=== PATIENT | female | born 1955 | race Caucasian/White ===

== ENCOUNTER 2017-01-02 22:35 | Inpatient (IN) | payer OTHER ==
[~2017-01-02] VITALS: Ht 157.5 cm; Wt 77.7 kg
--- NOTE | 2017-01-03 02:30 | ERA ---
ER Documentation Chief Complaint Date/Time DATE: 01/03/17 TIME: 02:29 Chief Complaint abd wall pain x 5 days HPI The patient is a 61-year-old female, presenting to the ER because of abdominal wall redness and pain for 5 days where she had ventral herniorrhaphy 5 years ago , associated with foul smell discharge and redness. She denies fever, chills, neck pain, chest pain, vomiting, dysuria, diarrhea. She does not smoke nor drink Past medical history: None Past surgical history , ventral herniorrhaphy ROS All systems reviewed and are negative except as per history of present illness. Allergies Allergies: Coded Allergies: No Known Allergies (Unverified Allergy, Mild, 01/03/17) PMhx/Soc History of Surgery: Yes (,HERNIA REPAIR) Anesthesia Reaction: No Hx Neurological Disorder: No Hx Respiratory Disorders: No Hx Cardiac Disorders: No Hx Psychiatric Problems: No Hx Miscellaneous Medical Probl: No Hx Alcohol Use: No Hx Substance Use: No Physical Exam Vitals Vital Signs Date Time Temp Pulse Resp B/P Pulse Ox O2 Delivery O2 Flow Rate FiO2 01/03/17 04:00 98.0 85 20 139/77 97 Room Air 01/03/17 02:53 98.6 97 24 160/97 97 Room Air 01/02/17 22:40 99.2 103 20 162/78 100 Physical Exam Const: No acute distress. Head: Atraumatic. Eyes: Normal Conjunctiva. ENT: Normal External Ears, Nose and Mouth. Neck: Full range of motion. No meningismus. Resp: Clear to auscultation bilaterally. Cardio: Regular rate and rhythm. Abd: Soft, non distended, normal bowel sounds,Abdominal wall with lesion with foul-smelling discharge with surrounding erythema Skin: No petechiae or rashes. Back: No midline or flank tenderness. Ext: No cyanosis, or edema. Neur: Awake and alert. No focal deficit Psych: Normal Mood and Affect. Result Diagram: 01/03/17 0245 01/03/17 0245 Results 24 hrs Laboratory Tests Test 01/03/17 02:45 01/03/17 03:09 White Blood Count 13.210^3/ul Red Blood Count 4.4110^6/ul Hemoglobin 13.3g/dl Hematocrit 40.6% Mean Corpuscular Volume 92.1fl Mean Corpuscular Hemoglobin 30.2pg Mean Corpuscular Hemoglobin Concent 32.8g/dl Red Cell Distribution Width 14.2% Platelet Count 75774^3/UL Mean Platelet Volume 9.9fl Neutrophils % 58.5% Lymphocytes % 32.4% Monocytes % 7.5% Eosinophils % 1.0% Basophils % 0.3% Nucleated Red Blood Cells % 0.0/100WBC Neutrophils # (Manual) 7.810^3/ul Lymphocytes # 4.310^3/ul Monocytes # 1.010^3/ul Eosinophils # 0.110^3/ul Basophils # 0.010^3/ul Nucleated Red Blood Cells # 0.010^3/ul Sodium Level 143mmol/L Potassium Level 3.5mmol/L Chloride Level 106mmol/L Carbon Dioxide Level 24mmol/L Anion Gap 17 Blood Urea Nitrogen 15mg/dl Creatinine 0.63mg/dl Glucose Level 133mg/dl Calcium Level 9.4mg/dl Total Bilirubin 0.6mg/dl Direct Bilirubin 0.00mg/dl Indirect Bilirubin 0.6mg/dl Aspartate Amino Transf (AST/SGOT) 24IU/L Alanine Aminotransferase (ALT/SGPT) 32IU/L Alkaline Phosphatase 145IU/L Total Protein 8.5g/dl Albumin 4.3g/dl Globulin 4.20g/dl Albumin/Globulin Ratio 1.02 Lipase 77U/L Bedside Urine pH (LAB) 5.5 Bedside Urine Protein (LAB) Trace Bedside Urine Glucose (UA) Negative Bedside Urine Ketones (LAB) Negative Bedside Urine Blood Trace-intact Bedside Urine Nitrite (LAB) Negative Bedside Urine Leukocyte Esterase (L Trace Current Medications Medications (Trade) Dose Ordered Sig/Sean Route PRN Reason Start Time Stop Time Status Last Admin Dose Admin Levofloxacin/ Dextrose 150 ml @ 100 mls/hr ONCE ONCE IVPB 01/03/17 04:00 01/03/17 05:29 DC 01/03/17 04:48 Vancomycin HCl (Vancocin) 250 ml @ 125 mls/hr ONCE IVPB 01/03/17 04:00 01/03/17 05:59 Procedures/MDM MEDICAL MAKING DECISION: The patient is a 61-year-old female, presenting with acute abdominal wall cellulitis. She was treated with Levaquin IV and vancomycin IV The differential diagnoses considered include but are not limited to intra- abdominal abscess, cholelithiasis, cholecystitis, cystitis, pancreatitis, hepatitis, gastritis, peptic ulcer disease, gastric ulcer, appendicitis, diverticulitis, cholangitis, choledocholithiasis, partial small bowel obstruction. Departure Diagnosis: Primary Impression: Abdominal wall cellulitis Condition: Stable Comments I discussed the findings with the patient. I discussed the patient the on-call hospitalist Dr. Armendariz who was made aware of the lab, the treatment, the patient condition. The patient is admitted to [facility] The patient's blood pressure was elevated (>120/80) but appears stable without evidence of hypertension emergency or urgency. The patient was counseled about the risks of hypertension and urged to pursue outpatient monitoring and therapy within a week with their primary care physician. CHALINO RODRIGUEZ MD Jan 03, 2017 02:30
[2017-01-03 03:01] LABS: BASOPHILS % 0.3 % (0.0-2.0); EOSINOPHILS # 0.1 10^3/ul (0.0-0.5); HEMATOCRIT 40.6 % (37.0-47.0); HEMOGLOBIN 13.3 g/dl (12.0-16.0); LYMPHOCYTES # 4.3 10^3/ul (0.8-2.9); LYMPHOCYTES % 32.4 % (15.0-51.0); MEAN CORPUSCULAR HEMOGLOBIN 30.2 pg (29.0-33.0); MEAN CORPUSCULAR HGB CONC 32.8 g/dl (32.0-37.0); MEAN CORPUSCULAR VOLUME 92.1 fl (82.0-101.0); MEAN PLATELET VOLUME 9.9 fl (7.4-10.4); MONOCYTES % 7.5 % (0.0-11.0); NEUTROPHILS % 58.5 % (39.0-77.0); PLATELET COUNT 216 10^3/UL (140-415); RED BLOOD COUNT 4.41 10^6/ul (4.20-5.40); RED CELL DISTRIBUTION WIDTH 14.2 % (11.5-14.5); WHITE BLOOD COUNT 13.2 10^3/ul (4.8-10.8)
[2017-01-03 03:02] LABS: URINE BLOOD (Dip) POC Trace-intact (NEGATIVE)
[2017-01-03 03:23] LABS: ALBUMIN 4.3 g/dl (3.3-4.9); ALBUMIN/GLOBULIN RATIO 1.02; BILIRUBIN,INDIRECT 0.6 mg/dl (0-1.1); BILIRUBIN,TOTAL 0.6 mg/dl (0.2-1.3); CALCIUM 9.4 mg/dl (8.4-10.2); CREATININE 0.63 mg/dl (0.44-1.00); POTASSIUM 3.5 mmol/L (3.5-5.1); TOTAL PROTEIN 8.5 g/dl (6.1-8.1)
[2017-01-03] MEDS ORDERED: LEVOFLOXACIN 750MG/D5W (PMX) 150 ML IVPB ONE (04:00)
[2017-01-03] MEDS ORDERED: VANCOMYCIN 1 GM (PMX) 250 ML IVPB SCH (04:00)
[2017-01-03 05:23] VITALS: TEMP 98
[2017-01-03] MEDS ORDERED: NAPR-683 PO (05:58)
[2017-01-03] MEDS ORDERED: morphine 2 MG INJ IV PRN ×2 (08:00→10:30)
[2017-01-03 08:10] VITALS: Ht 157.5 cm; Wt 77.7 kg
[2017-01-03 08:14] VITALS: BP 174/81; RESP 20
[2017-01-03] MEDS ORDERED: hydrALAzine 20 MG INJ IV PRN (10:30)
[2017-01-03] MEDS ORDERED: ONDANSETRON 4 MG INJ IV PRN (10:30)
[2017-01-03] MEDS ORDERED: NACL 0.9% 3 ML SYG IV SCH (10:30)
[2017-01-03] MEDS ORDERED: VANCOMYCIN IV PER PHARMACY XX SCH (10:30)
[2017-01-03] MEDS ORDERED: ACETAMINOPHEN 325 MG TAB PO PRN (10:30)
--- NOTE | 2017-01-03 10:43 | HP ---
Date/Time of Note Date/Time of Note DATE: 01/03/17 TIME: 10:35 Assessment/Plan VTE Prophylaxis VTE Prophylaxis Intervention: SCD's Assessment/Plan Assessment/Plan 1. Sepsis 2/2 and wall cellulitis - IV abx - tf/u culture results including wound cx -pain mgmt 2. HTN: - adjust antihypertensives with adjustment as needed HPI/ROS Admit Date/Time Admit Date/Time Jan 03, 2017 at 04:02 Hx of Present Illness This is a 61 yo female with hx of Ventral hernia repair here at [facility] in 2010 presented with abd pain. Reported redness with draining infection as well as subjective fever. When she presented to ER, WBC was 13,000, but she was afebrile. BP 162/78 with HR of 103. PMH/Family/Social Social History Smoking Status: Never smoker Exam/Review of Systems Vital Signs Vitals Vital Signs Date Time Temp Pulse Resp B/P Pulse Ox O2 Delivery O2 Flow Rate FiO2 01/03/17 08:14 98.3 89 20 174/81 95 01/03/17 05:23 Room Air Intake and Output 01/02/17 01/02/17 01/03/17 15:00 23:00 07:00 Intake Total 150 ml Balance 150 ml Exam Constitutional: other (obese. no distress) Head: atraumatic, normocephalic Eyes: EOMI, PERRL Respiratory: clear to auscultation, normal air movement Cardiovascular: other (tavhycardic) Gastrointestinal: other (there is cellulitis with some pus) Extremities: normal pulses Labs Result Diagram: 01/03/175 01/03/17 0245 Medications Medications Current Medications Ondansetron HCl (Zofran Inj) 4 mg Q6H PRN IV NAUSEA AND/OR VOMITING; Start 01/03 at 10:30 Acetaminophen (Tylenol Tab) 650 mg Q6H PRN PO PAIN LEVEL 1-3 OR FEVER; Start at 10:30 Morphine Sulfate 2 mg 2 mg Q4H PRN IV SEVERE PAIN LEVEL 7-10; Start 01/03/17 at 10:30 Cefepime HCl (Maxipime 1gm/50 ml (Pmx)) 50 ml @ 100 mls/hr Q12 IVPB ; Start 01/03/17 at 10:30 Amlodipine Besylate (Norvasc) 10 mg DAILY PO ; Start 01/03/17 at 10:30 Hydralazine HCl (Apresoline) 10 mg Q4H PRN IV SBP > 160; Start 01/03/17 at 10:30 ALETHEA LINDER MD Jan 03, 2017 10:42
[2017-01-03] MEDS: CEFEPIME 1GM/50 ML (PMX) 50 ML IVPB SCH ×2 (11:27→20:55)
[2017-01-03] MEDS: AMLODIPINE 10 MG TAB PO SCH (11:28)
[2017-01-03] MEDS: VANCOMYCIN 750 MG in SOD CHLORIDE 0.9% 150 ML IVPB SCH ×2 (13:21→22:14)
[2017-01-03 14:31] VITALS: BP 132/66; RESP 20
[2017-01-03 19:41] VITALS: BP 126/69; RESP 18
[2017-01-04] MEDS: AMPICILLIN/SULB 3 GM/NS (PMX) 100 ML IVPB SCH ×4 (00:24→21:48)
[2017-01-04 02:00] VITALS: BP 122/61; RESP 18
[2017-01-04 06:57] LABS: BASOPHILS % 0.4 % (0.0-2.0); EOSINOPHILS # 0.2 10^3/ul (0.0-0.5); EOSINOPHILS % 2.5 % (0.0-7.0); HEMATOCRIT 40.4 % (37.0-47.0); HEMOGLOBIN 13.3 g/dl (12.0-16.0); LYMPHOCYTES # 2.5 10^3/ul (0.8-2.9); LYMPHOCYTES % 34.5 % (15.0-51.0); MEAN CORPUSCULAR HEMOGLOBIN 30.4 pg (29.0-33.0); MEAN CORPUSCULAR HGB CONC 32.9 g/dl (32.0-37.0); MEAN CORPUSCULAR VOLUME 92.2 fl (82.0-101.0); MEAN PLATELET VOLUME 10.3 fl (7.4-10.4); MONOCYTE # 0.5 10^3/ul (0.3-0.9); MONOCYTES % 7.6 % (0.0-11.0); NEUTROPHILS % 54.9 % (39.0-77.0); PLATELET COUNT 229 10^3/UL (140-415); RED BLOOD COUNT 4.38 10^6/ul (4.20-5.40); RED CELL DISTRIBUTION WIDTH 14.1 % (11.5-14.5); WHITE BLOOD COUNT 7.2 10^3/ul (4.8-10.8)
[2017-01-04 07:20] LABS: ALBUMIN 3.8 g/dl (3.3-4.9); ALBUMIN/GLOBULIN RATIO 0.88; BILIRUBIN,INDIRECT 0.4 mg/dl (0-1.1); BILIRUBIN,TOTAL 0.4 mg/dl (0.2-1.3); CALCIUM 9.2 mg/dl (8.4-10.2); CREATININE 0.65 mg/dl (0.44-1.00); MAGNESIUM 2.2 mg/dl (1.7-2.5); PHOSPHORUS 4.3 mg/dl (2.5-4.9); POTASSIUM 4.1 mmol/L (3.5-5.1); TOTAL PROTEIN 8.1 g/dl (6.1-8.1)
[2017-01-04 07:51] VITALS: BP 127/60; RESP 16
[2017-01-04] MEDS: AMLODIPINE 10 MG TAB PO SCH (08:31)
[2017-01-04] MEDS: VANCOMYCIN 750 MG in SOD CHLORIDE 0.9% 150 ML IVPB SCH ×2 (10:45→23:16)
[2017-01-04 13:49] VITALS: BP 105/50; RESP 16
--- NOTE | 2017-01-04 14:47 | PN ---
Date/Time of Note Date/Time of Note DATE: 01/04/17 TIME: 14:45 Assessment/Plan VTE Prophylaxis VTE Prophylaxis Intervention: SCD's Lines/Catheters IV [facility] Type (from [email or web address] Saline Lock Urinary Cath still in place: No Assessment/Plan Chief Complaint/Hosp Course Assessment and plan 1. Sepsis secondary to abdominal wall cellulitis. On IV antibiotics. Awaiting for microbiology final cultures. ID consult to follow. Wound care consult to follow as well. 2. Essential hypertension. On antihypertensives and adjust needed dispo/plan: wait for final cultures. continue on abx. ID consult to follow. continue inhouse monitoring Discussed plan of care with Dr. Joseph Problems: Subjective 24 Hr Interval Summary Free Text/Dictation less abd discomfort reported Exam/Review of Systems Vital Signs Vitals Vital Signs Date Time Temp Pulse Resp B/P Pulse Ox O2 Delivery O2 Flow Rate FiO2 01/04/17 13:49 97.7 73 16 105/50 97 01/03/17 05:23 Room Air Intake and Output 01/03/17 01/03/17 01/04/17 15:00 23:00 07:00 Intake Total 480 ml 1140 ml 1150 ml Balance 480 ml 1140 ml 1150 ml Exam Constitutional: alert, oriented Psych: nl mood/affect Head: normocephalic Eyes: nl conjunctiva Neck: supple Respiratory: clear to auscultation Cardiovascular: regular rate and rhythm Gastrointestinal: soft, tender (on abd wound site ) Musculoskeletal: nl extremities to inspection Neurological: [employer] II-XII intact, nl mental status, nl speech Skin: other (cellulitic wound on abd with some drainage and erythema ) Results Result Diagram: 01/04/17 0540 01/04/17 0540 Results 24 hrs Laboratory Tests Test 01/04/17 05:40 White Blood Count 7.2 # Red Blood Count 4.38 Hemoglobin 13.3 Hematocrit 40.4 Mean Corpuscular Volume 92.2 Mean Corpuscular Hemoglobin 30.4 Mean Corpuscular Hemoglobin Concent 32.9 Red Cell Distribution Width 14.1 Platelet Count 229 Mean Platelet Volume 10.3 Neutrophils % 54.9 Lymphocytes % 34.5 Monocytes % 7.6 Eosinophils % 2.5 Basophils % 0.4 Nucleated Red Blood Cells % 0.0 Neutrophils # (Manual) 3.9 Lymphocytes # 2.5 Monocytes # 0.5 Eosinophils # 0.2 Basophils # 0.0 Nucleated Red Blood Cells # 0.0 Sodium Level 143 Potassium Level 4.1 Chloride Level 106 Carbon Dioxide Level 27 Anion Gap 14 Blood Urea Nitrogen 10 Creatinine 0.65 Glucose Level 111 Calcium Level 9.2 Phosphorus Level 4.3 Magnesium Level 2.2 Total Bilirubin 0.4 Direct Bilirubin 0.00 Indirect Bilirubin 0.4 Aspartate Amino Transf (AST/SGOT) 27 Alanine Aminotransferase (ALT/SGPT) 34 Alkaline Phosphatase 126 H Total Protein 8.1 Albumin 3.8 Globulin 4.30 H Albumin/Globulin Ratio 0.88 Medications Medications Current Medications Ondansetron HCl (Zofran Inj) 4 mg Q6H PRN IV NAUSEA AND/OR VOMITING; Start 01/03 at 10:30 Acetaminophen (Tylenol Tab) 650 mg Q6H PRN PO PAIN LEVEL 1-3 OR FEVER; Start at 10:30 Morphine Sulfate (morphine) 2 mg Q4H PRN IV SEVERE PAIN LEVEL 7-10; Start at 10:30 Amlodipine Besylate (Norvasc) 10 mg DAILY PO Last administered on 01/04/17 08: 31; Admin Dose 10 MG; Start 01/03/17 at 10:30 Hydralazine HCl 10 mg 10 mg Q4H PRN IV SBP > 160; Start 01/03/17 at 10:30 Vancomycin HCl 750 mg/Sodium Chloride 150 ml @ 75 mls/hr Q12H IVPB Last administered on 01/04/17 10:45; Admin Dose 75 MLS/HR; Start 01/03/17 at 11:00 Ampicillin Sodium/ Sulbactam Sodium (Unasyn 3gm/NS (Pmx)) 100 ml @ 100 mls/hr Q8 IVPB Last administered on 01/04/17 14:12; Admin Dose 100 MLS/HR; Start at 22:00; Stop 01/10/17 at 22:00 Miscellaneous Information (*Rx Drug Level Order Reminder*) VANCOMYCIN TROUGH 01/04 AT 2200 ONCE ONCE XX ; Start 01/04/17 at 22:00; Stop 01/04/17 at 22:01 LISA FAULKNER Jan 04, 2017 14:47
--- NOTE | 2017-01-04 19:11 | CONS ---
Date/Time of Note Date/Time of Note DATE: 01/04/17 TIME: 18:57 Assessment/Plan Assessment/Plan Chief Complaint/Hosp Course ID PROGRESS NOTE * NOTE: Dr. Santamaria saw the patient yesterday 01/03 for initial ID consultation, reporting consult note technical dictation failure. CURRENT ABX: =>Vanco IV + Unasyn == started by Dr. Santamaria 01/03 s/p Cefepime DC'd by Dr. Santamaria 01/03 24H INTERVAL SUMMARY * A/A/O - ambulatory in room, no fevers, doing OK * 01/03/17 ABD wound WOUND CULTURE Preliminary Organism 1 GRAM NEGATIVE JANESSA QUANTITY 4+ EXAM GEN: VSS, no fevers, HEENT: Unremarkable NECK: WNL CVS: RRR, CHEST:Equal chest rise bilaterally, without dyspnea ABD: (+)tender w/cellulitic wound with some drainage and erythema ) EXT: Warm, no edema, ambulatory with stead gait ID ASSESSMENT 61 yo F admit with: 1. SIRS w/subjective fevers at home; WBC13,200, BP 162/78 with HR of 103 on admission. 2. ABD wall cellulitis with draining wound * 01/03/17 ABD wound WOUND CULTURE Preliminary Organism 1 GRAM NEGATIVE JANESSA QUANTITY 4+ 3. s/p large ventral hernia repair in 2010 with removal of omentum + flap 3. HTN readings 160-170's range CURRENT ABX =>Vanco IV + Unasyn == started by Dr. Santamaria 01/03 s/p Cefepime DC'd by Dr. Santamaria 01/03 ID RECOMMENDATIONS * Await results of GNR ABD wound drainage => Pending * Anticipate DC home on PO ABX per micro sensitivity results when cleared by primary . Problems: Consultation Date/Type/Reason Admit Date/Time Jan 03, 2017 at 04:02 Initial Consult Date Exam/Review of Systems Vital Signs Vitals Vital Signs Date Time Temp Pulse Resp B/P Pulse Ox O2 Delivery O2 Flow Rate FiO2 01/04/17 13:49 97.7 73 16 105/50 97 01/03/17 05:23 Room Air Intake and Output 01/03/17 01/03/17 01/04/17 15:00 23:00 07:00 Intake Total 480 ml 1140 ml 1150 ml Balance 480 ml 1140 ml 1150 ml Results Result Diagram: 01/04/17 0540 01/04/17 0540 Results 24 hrs Laboratory Tests Test 01/04/17 05:40 White Blood Count 7.2 # Red Blood Count 4.38 Hemoglobin 13.3 Hematocrit 40.4 Mean Corpuscular Volume 92.2 Mean Corpuscular Hemoglobin 30.4 Mean Corpuscular Hemoglobin Concent 32.9 Red Cell Distribution Width 14.1 Platelet Count 229 Mean Platelet Volume 10.3 Neutrophils % 54.9 Lymphocytes % 34.5 Monocytes % 7.6 Eosinophils % 2.5 Basophils % 0.4 Nucleated Red Blood Cells % 0.0 Neutrophils # (Manual) 3.9 Lymphocytes # 2.5 Monocytes # 0.5 Eosinophils # 0.2 Basophils # 0.0 Nucleated Red Blood Cells # 0.0 Sodium Level 143 Potassium Level 4.1 Chloride Level 106 Carbon Dioxide Level 27 Anion Gap 14 Blood Urea Nitrogen 10 Creatinine 0.65 Glucose Level 111 Calcium Level 9.2 Phosphorus Level 4.3 Magnesium Level 2.2 Total Bilirubin 0.4 Direct Bilirubin 0.00 Indirect Bilirubin 0.4 Aspartate Amino Transf (AST/SGOT) 27 Alanine Aminotransferase (ALT/SGPT) 34 Alkaline Phosphatase 126 H Total Protein 8.1 Albumin 3.8 Globulin 4.30 H Albumin/Globulin Ratio 0.88 Medications Medications Current Medications Ondansetron HCl (Zofran Inj) 4 mg Q6H PRN IV NAUSEA AND/OR VOMITING; Start 01/03 at 10:30 Acetaminophen (Tylenol Tab) 650 mg Q6H PRN PO PAIN LEVEL 1-3 OR FEVER; Start at 10:30 Morphine Sulfate (morphine) 2 mg Q4H PRN IV SEVERE PAIN LEVEL 7-10; Start at 10:30 Amlodipine Besylate (Norvasc) 10 mg DAILY PO Last administered on 01/04/17 08: 31; Admin Dose 10 MG; Start 01/03/17 at 10:30 Hydralazine HCl 10 mg 10 mg Q4H PRN IV SBP > 160; Start 01/03/17 at 10:30 Vancomycin HCl 750 mg/Sodium Chloride 150 ml @ 75 mls/hr Q12H IVPB Last administered on 01/04/17 10:45; Admin Dose 75 MLS/HR; Start 01/03/17 at 11:00 Ampicillin Sodium/ Sulbactam Sodium (Unasyn 3gm/NS (Pmx)) 100 ml @ 100 mls/hr Q8 IVPB Last administered on 01/04/17t 14:12; Admin Dose 100 MLS/HR; Start at 22:00; Stop 01/10/17 at 22:00 Miscellaneous Information (*Rx Drug Level Order Reminder*) VANCOMYCIN TROUGH 01/04 AT 2200 ONCE ONCE XX ; Start 01/04/17 at 22:00; Stop 01/04/17 at 22:01 TROY CARR NP Jan 04, 2017 19:08
[2017-01-04 20:26] VITALS: BP 132/63; RESP 16
[2017-01-05 02:44] VITALS: BP 123/62; RESP 16
[2017-01-05] MEDS: AMPICILLIN/SULB 3 GM/NS (PMX) 100 ML IVPB SCH ×3 (05:22→21:13)
[2017-01-05 06:43] LABS: CREATININE 0.54 mg/dl (0.44-1.00)
[2017-01-05] MEDS ORDERED: VANCOMYCIN 1 GM in NS 250 ML IVPB SCH (07:00)
[2017-01-05 07:37] VITALS: BP 130/71; RESP 19
[2017-01-05] MEDS: AMLODIPINE 10 MG TAB PO SCH (09:18)
[2017-01-05] MEDS ORDERED: CEPHALEXIN 500 MG CAP PO SCH (12:00)
[2017-01-05 13:13] VITALS: BP 125/58; RESP 20
[2017-01-05] MEDS: TRIMETHOPRIM/SULFAMETHOX (DS) TAB PO SCH (15:00)
--- NOTE | 2017-01-05 15:22 | CONS ---
Date/Time of Note Date/Time of Note DATE: 01/05/17 TIME: 14:51 Assessment/Plan Assessment/Plan Chief Complaint/Hosp Course ID PROGRESS NOTE * NOTE: Dr. Santamaria saw the patient yesterday 01/03 for initial ID consultation, reporting consult note technical dictation failure. CURRENT ABX: =>Vanco IV + Unasyn == started by Dr. Santamaria 01/03 s/p Cefepime DC'd by Dr. Santamaria 01/03 24H INTERVAL SUMMARY * A/A/O - ambulatory in room, no fevers, doing OK * 01/03/17 ABD wound WOUND CULTURE Preliminary Organism 1 ESCHERICHIA COLI QUANTITY 4+ Organism 2 STAPHYLOCOCCUS SPECIES QUANTITY SCANT GROWTH E COLI M.I.C. RX --------- --- AMPICILLIN <=2 S CEFAZOLIN I CEFOTAXIME S CIPROFLOXACIN <=0.25 S GENTAMICIN <=1 S LEVOFLOXACIN <=0.12 S TOBRAMYCIN <=1 S TRIMETHOPRIM/SULFAMETHOXAZOLE <=20 S EXAM GEN: VSS, no fevers, HEENT: Unremarkable NECK: WNL CVS: RRR, CHEST:Equal chest rise bilaterally, without dyspnea ABD: (+)tender w/cellulitic wound with some drainage and erythema ) EXT: Warm, no edema, ambulatory with stead gait ID ASSESSMENT 61 yo F admit with: 1. SIRS w/subjective fevers at home; WBC13,200, BP 162/78 with HR of 103 on admission. 2. ABD wall cellulitis with draining wound * 01/03/17 ABD wound WOUND CULTURE Preliminary Organism 1 GRAM NEGATIVE JANESSA QUANTITY 4+ 3. s/p large ventral hernia repair in 2010 with removal of omentum + flap 3. HTN readings 160-170's range CURRENT ABX =>Vanco IV= DC'd by primary today, Keflex po added ? + Unasyn IV == started by Dr. Santamaria 01/03 = TODAY: Continue Augmentin + add Bactrim PO for Staph Aureus s/p Cefepime DC'd by Dr. Santamaria 01/03 ID RECOMMENDATIONS 1. Vanco IV DC'd by primary who started Keflex PO * DC Keflex PO as E.Coli is only Intermediate sensitivity to Ancef 2. Continue Augmentin IV for now 3. Start Bactrim DS 1 TAB PO BUD x 14 days 4. Per TEXT communication w/Dr. Ambrosio -- obtain imaging to rule out abscess 5. If no abscess -> Anticipate DC home on PO ABX Bactrim DS 1 TAB PO Daily + Levaquin 500mg daily x 14 days . Problems: Consultation Date/Type/Reason Admit Date/Time Jan 03, 2017 at 04:02 Exam/Review of Systems Vital Signs Vitals Vital Signs Date Time Temp Pulse Resp B/P Pulse Ox O2 Delivery O2 Flow Rate FiO2 01/05/17 13:13 98.9 95 20 125/58 96 01/03/17 05:23 Room Air Intake and Output 01/04/17 01/04/17 01/05/17 15:00 23:00 07:00 Intake Total 1070 ml 650 ml Balance 1070 ml 650 ml Results Result Diagram: 01/04/17 0540 01/05/17 0558 Results 24 hrs Laboratory Tests Test 01/04/17 22:14 01/05/17 05:58 Vancomycin Level Trough 6.1 L Blood Urea Nitrogen 11 Creatinine 0.54 Medications Medications Current Medications Ondansetron HCl (Zofran Inj) 4 mg Q6H PRN IV NAUSEA AND/OR VOMITING; Start 01/03 at 10:30 Acetaminophen (Tylenol Tab) 650 mg Q6H PRN PO PAIN LEVEL 1-3 OR FEVER; Start at 10:30 Amlodipine Besylate 10 mg 10 mg DAILY PO Last administered on 01/05/17 09:18; Admin Dose 10 MG; Start 01/03/17 at 10:30 Ampicillin Sodium/ Sulbactam Sodium (Unasyn 3gm/NS (Pmx)) 100 ml @ 100 mls/hr Q8 IVPB Last administered on 01/05/17 13:56; Admin Dose 100 MLS/HR; Start at 22:00; Stop 01/10/17 at 22:00 Cephalexin (Keflex) 500 mg Q6 PO Last administered on 01/05/17 14:01; Admin Dose 500 MG; Start 01/05/17 at 12:00 TROY CARR NP Jan 05, 2017 15:11
--- NOTE | 2017-01-05 16:11 | PN ---
Date/Time of Note Date/Time of Note DATE: 01/05/17 TIME: 15:57 Assessment/Plan VTE Prophylaxis VTE Prophylaxis Intervention: SCD's Lines/Catheters IV Catheter Type (from Nrsg): Saline Lock Urinary Cath still in place: No Assessment/Plan Assessment/Plan 61 yo F with abd wound with surrounding cellulitis cont bactrim/unasyn CT to eval for subQ fluid collection cont home meds Subjective 24 Hr Interval Summary Free Text/Dictation Per patient, she did not have just cellulitis but a small hole in her abdominal wall from which pus abd blood has been coming out Exam/Review of Systems Vital Signs Vitals Vital Signs Date Time Temp Pulse Resp B/P Pulse Ox O2 Delivery O2 Flow Rate FiO2 01/05/17 13:13 98.9 95 20 125/58 96 01/03/17 05:23 Room Air Intake and Output 01/04/17 01/04/17 01/05/17 15:00 23:00 07:00 Intake Total 1070 ml 650 ml Balance 1070 ml 650 ml Exam nad no mrg cta inf abdomen with 4 x 4 cm erythematous patch with 0.5 cm aperture in the center with sanguinous output no le edema Results Result Diagram: 01/04/17 0540 01/05/17 0558 Results 24 hrs Laboratory Tests Test 01/04/17 22:14 01/05/17 05:58 Vancomycin Level Trough 6.1 L Blood Urea Nitrogen 11 Creatinine 0.54 Medications Medications Current Medications Ondansetron HCl (Zofran Inj) 4 mg Q6H PRN IV NAUSEA AND/OR VOMITING; Start 01/03 at 10:30 Acetaminophen (Tylenol Tab) 650 mg Q6H PRN PO PAIN LEVEL 1-3 OR FEVER; Start at 10:30 Amlodipine Besylate 10 mg 10 mg DAILY PO Last administered on 01/05/17 09:18; Admin Dose 10 MG; Start 01/03/17 at 10:30 Ampicillin Sodium/ Sulbactam Sodium (Unasyn 3gm/NS (Pmx)) 100 ml @ 100 mls/hr Q8 IVPB Last administered on 01/05/17 13:56; Admin Dose 100 MLS/HR; Start at 22:00; Stop 01/10/17 at 22:00 Trimethoprim/ Sulfamethoxazole (Bactrim (Ds)) 1 tab DAILY PO ; Start 01/05/17 at 15:00; Stop 01/19/17 at 14:59 ATIF CONTRERAS MD Jan 05, 2017 16:10
[2017-01-05] MEDS ORDERED: SOD CHLORIDE 0.9% 100 ML ONE (18:38)
[2017-01-05] MEDS ORDERED: IOHEXOL 300MG/ML 150 ML BTL ONE (18:38)
[2017-01-05 20:00] VITALS: BP 128/70; RESP 20
--- NOTE | 2017-01-06 00:38 | RADRPT ---
PROCEDURE: CT ABDOMEN AND PELVIS WITH CONTRAST: CLINICAL INDICATION: 61 years of age, female, abdominal wound. Concern for involvement of abdomi nal wall mesh and other structures. COMPARISON: None available. TECHNIQUE: CT of the abdomen and pelvis was performed following administration of 90 mL IV Omnipa que-300. Oral contrast was not administered prior to the examination. Coronal and sagittal reformatted images were obtained from the axial source images. Images were revi ewed on a high-resolution PACS workstation. Dose information: Based on a 32 cm phantom, the estimated radiation dose (CTDI vol mGy for each seri es in this exam is 16. The estimated cumulative dose (DLP mGy-cm) is 870. One or more of the following dose reduction techniques were used: - Automated exposure control. - Adjustment of the mA and/or kV according to patient size. - Use of iterative reconstruction technique. FINDINGS: LUNG BASES: Normal. ABDOMEN/PELVIS: Liver: Normal. Portal veins, splenic vein and SMV are patent. Hepatic veins are patent. Gallbladder: Multiple calcified stones in a contracted gallbladder. Bile ducts: No intrahepatic or extrahepatic biliary duct dilatation. Spleen: Normal. Pancreas: Normal. Adrenal glands: Tiny benign myelolipoma left adrenal gland. Right adrenal gland is normal. Kidneys and ureters: There are bilateral nonobstructing renal calculi measuring up to 0.5 cm. Negat paulino for ureteral calculi or hydronephrosis. There is nonspecific mild enhancement of the urothelium of bilateral pelvicaliceal systems. Kidneys enhance normally. Aorta and IVC: Atherosclerosis aorta. No aneurysm. Lymph nodes: Prominent namrata hepatis and pelvic sidewall lymph nodes are likely reactive. Gastrointestinal tract: Stool ball in the rectum measures 6.3 cm. Colonic diverticulosis greatest i n descending and sigmoid colon without diverticulitis. Stomach is distended from a recent meal. Chitra l loops are otherwise decompressed, Small bowel loops are tethered to the anterior abdominal wall at the site of the mesh. Appendix: Normal with an appendicolith at the root of the appendix. Bladder: Contracted. Pelvic Organs: There is a coarse calcification at the left introitus that may be within a Bartholin gland cyst (3/167). Uterus and adnexa are otherwise unremarkable.. Peritoneal cavity: No free fluid or free intraperitoneal air. Abdominal wall: There is a mesh in the mid anterior abdominal wall. There is an open wound in the mcgarry bcutaneous fat of the anterior abdominal wall in the midline at the inferior margin of the mesh that extends to the mesh and abdominal wall musculature (3122). There are small pockets of gas and flu id within the deep fascia anterior to the left side of the mesh concerning for infection (3110). T here is loculated fluid anterior to the mesh measuring 1.1 x 7.2 cm. There is a fluid-filled tract at the right superior aspect of the mesh within the subcutaneous fat (). There is mild edematou s stranding in the extraperitoneal fat within the abdominal cavity immediately deep to the mesh wher e there is also tethering of loops of small bowel. BONES: Musculoskeletal: Degenerative changes in spine and bilateral hips. No suspicious bone lesions. IMPRESSION: Open wound in the subcutaneous fat of the anterior abdominal wall at the inferior margin of the abdo ricci mesh extends to the mesh and deep fascia with fluid collections related to the mesh concerning for mesh infection. Small bowel loops are tethered to the anterior abdominal wall at the site of the mesh. If there is concern for an enterocutaneous fistula, recommend CT with oral contrast or a fistulogram. Cholelithiasis without evidence of acute cholecystitis or biliary obstruction. Bilateral nonobstructing renal calculi. Mild enhancement of the urothelium of bilateral kidneys may be due to the renal calculi. Recommend correlation with urinalysis to rule out urinary tract infec tion. RPTAT: HCTS Physician Lisa Date Time Electronically viewed and signed by Adina Gonzales Physician on 01/06/2017 00:38 CS/
[2017-01-06 02:00] VITALS: BP 111/55; RESP 20
[2017-01-06] MEDS: AMPICILLIN/SULB 3 GM/NS (PMX) 100 ML IVPB SCH ×3 (05:49→20:51)
[2017-01-06 07:59] VITALS: BP 117/64; RESP 18
[2017-01-06] MEDS: TRIMETHOPRIM/SULFAMETHOX (DS) TAB PO SCH (08:46)
[2017-01-06] MEDS: AMLODIPINE 10 MG TAB PO SCH (08:47)
[2017-01-06 14:34] VITALS: BP 116/65; RESP 18
--- NOTE | 2017-01-06 16:06 | PN ---
Date/Time of Note Date/Time of Note DATE: 01/06/17 TIME: 16:00 Assessment/Plan VTE Prophylaxis VTE Prophylaxis Intervention: SCD's Lines/Catheters IV [facility]ter Type (from [facility]): Saline Lock Urinary Cath still in place: No Assessment/Plan Assessment/Plan 61 yo F with h/o ventral hernia repair with mesh in 2010 presents with leaky abd wound. Imaging with subQ fluid around mesh and possible fistula cont abx, ID following gen surg consult fistulogram cont home meds Exam/Review of Systems Vital Signs Vitals Vital Signs Date Time Temp Pulse Resp B/P Pulse Ox O2 Delivery O2 Flow Rate FiO2 01/06/17 14:34 98.1 83 18 116/65 95 01/03/17 05:23 Room Air Intake and Output 01/05/17 01/05/17 01/06/17 15:00 23:00 07:00 Intake Total 350 ml 1540 ml 400 ml Balance 350 ml 1540 ml 400 ml Results Result Diagram: 01/04/17 0540 01/05/17 0558 Medications Medications Current Medications Ondansetron HCl (Zofran Inj) 4 mg Q6H PRN IV NAUSEA AND/OR VOMITING; Start 01/03 at 10:30 Acetaminophen (Tylenol Tab) 650 mg Q6H PRN PO PAIN LEVEL 1-3 OR FEVER; Start at 10:30 Amlodipine Besylate 10 mg 10 mg DAILY PO Last administered on 01/06/17 08:47; Admin Dose 10 MG; Start 01/03/17 at 10:30 Ampicillin Sodium/ Sulbactam Sodium (Unasyn 3gm/NS (Pmx)) 100 ml @ 100 mls/hr Q8 IVPB Last administered on 01/06/17 13:52; Admin Dose 100 MLS/HR; Start at 22:00; Stop 01/10/17 at 22:00 Trimethoprim/ Sulfamethoxazole (Bactrim (Ds)) 1 tab DAILY PO Last administered on 01/06/17 08:46; Admin Dose 1 TAB; Start 01/05/17 at 15:00; Stop 01/19/17 at 14 :59 ATIF CONTRERAS MD Jan 06, 2017 16:06
--- NOTE | 2017-01-06 18:12 | CONS ---
DATE OF ADMISSION: 01/03/2017 DATE OF CONSULTATION: 01/06/2017 TYPE OF CONSULTATION: Surgical, requested by hospitalist group, Dr. Fannie Jones. REASON FOR CONSULTATION: Abdominal wound, possible abscess, possible infected mesh. Thank you, Dr. Jones, for asking us to be involved in the care of this patient. Actually, the original consultation was requested from Dr. Reyes because of 2 reasons. First, the on- call surgeon refused to see the patient. His reasoning was that patient was operated by Dr. Reyes 5 years ago, therefore should be seen by Dr. Reyes, and the second is that this patient had a large abdominal wall hernia repair in [address] Reyes, and at that time, he put a mesh and also did some flap advancement to reconstruct the umbilicus of the patient. HISTORY OF PRESENT ILLNESS: In any case, apparently, this patient has been having redness and pain and tenderness around the umbilicus for about 3-4 weeks. It gradually got worse, so much that eventually it started draining foul-smelling fluid from the site of new umbilicus on January 02 before she came to the emergency room on January 02 at night, was seen by the emergency room physician, and at that time, they found that the patient had a temperature 99.2, heart rate 103, WBC 13,200, and they found an abdominal wall central cellulitis and with a central opening, which was draining some foul-smelling liquid per Dr. Rosario from emergency room. At that time, he started the patient on antibiotics and got the cultures, and patient was admitted for further antibiotic treatment. On January 05, Dr. Jones requested a CT scan of the abdomen and pelvis with IV contrast, which was read by radiologist as follows, impression: 1. Open wound in the subcutaneous fat of the anterior abdominal wall at the inferior margin of the abdominal mesh, extends through the mesh and deep fascia with fluid collection related to the mesh concerning for mesh infection. 2. Small bowel loops are tethered to the anterior abdominal wall at the site of the mesh. If there is concern for an enterocutaneous fistula, recommend CT with oral contrast for a fistulogram. 3. Cholelithiasis without evidence of acute cholecystitis or biliary obstruction. 4. Bilateral nonobstructive renal calculi. Mild enhancement of the urothelium of bilateral kidneys may be due to the renal calculi. Recommend correlation with urinalysis to rule out urinary tract infection. On the basis of this CT scan reading, Dr. Jones requested a consultation from Dr. Reyes for surgical evaluation. PAST MEDICAL HISTORY: Hypertension. PAST SURGICAL HISTORY: and ventral herniorrhaphy. REVIEW OF SYSTEMS: As was mentioned above, otherwise unremarkable. ALLERGIES: NO KNOWN DRUG ALLERGIES. 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 No alcohol use. No tobacco use. PHYSICAL EXAMINATION: GENERAL: Today, patient is lying on the bed. VITAL SIGNS: As follows: Temperature 98.1; heart rate 83, regular; respirations 18, blood pressure 112/65; saturation 95 percent on room air. HEENT: Head normocephalic. Eyes: Pupils equally round, reactive to light and accommodation. Extraocular muscles: Full range of motion. NECK: No tenderness, soft, full range of motion. CHEST: Symmetrical expansion, no hemithorax. HEART: Regular rhythm. No murmur. LUNGS: Clear on auscultation. ABDOMEN: Not distended. Bowel sounds are present. There are 2 lesions on the abdominal wall. One is centrally around the umbilicus. The other one is a little bit to the right side about 6-7 cm with failure to that one. The second one is 4.5 x 2 cm, an area of redness and some induration but no opening of the skin. Posteriorly, there is fluid collection underneath. The second one is an area of cellulitis, which is resolving, comparing to the admission time and with induration, and one may call it actually a kind of phlegmon. It is 9 x 3 cm with a central opening, which is about 1 x 0.3 cm. On palpation, it is quite firm, and, of course, it should be mentioned that this is exactly at the site of the new umbilicus, which was formed 5-[address] Reyes for this patient, and underneath, of course, there was a mesh for repair of the large hernia. At this time, the sponge dressing over the wound shows some serosanguineous drainage. There is no foul smelling. LOWER EXTREMITIES: No pitting edema. Dorsalis pedis pulses are palpable, 2+ bilaterally. LABORATORY: No lab is done for today. Urinalysis, which is from the second day of admission, shows urine protein trace, glucose negative, ketones negative, urine blood trace, nitrate negative, leukocyte esterase trace, which is positive, of course. A wound culture result, which was sent on admission from the drainage, has grown E coli 4+ and coagulase negative staph, scant growth. Also, sensitivity has been done, which is documented in the chart. The patient has been started on a different kind of antibiotic by different group of physicians. Eventually, now, patient is on Bactrim, Unasyn and Augmentin per Infectious Disease recommendation. IMPRESSION: Here is a 61-year-old female, who presented to the emergency room because of abdominal wound redness, pain and tenderness and drainage of the foul-smelling liquid from the site of the previous operation (previous operation was 6 years ago for ventral hernia, which was done by Dr. Reyes, and he did omentectomy. Again, because of the large size of the defect, he had to put a mesh, which was a composite mesh, and then also the umbilicus had to be removed because of excessive extra skin, and then he mobilized the nearer skin, and new umbilicus was formed for the patient). Apparently, the patient has been doing fine with no complaints and no problem for 5 or 5-1/2 years. Only the problem started about 4 weeks ago. Gradually, she developed redness and tenderness and swelling around the new umbilicus, and eventually a spot opened up, and some purulent material was drained. For this reason, patient came to the emergency room, and as was mentioned, there was found to have cellulitis and infection, which grew E. coli and Staphylococcus coagulase negative. The drainage and also the CT scan, which shows a lot of inflammation anterior to the mesh and there is cutaneous tissue and also tethering of several loops of small bowel, which most probably is severe adhesion of the small bowel loops to the undersurface of the mesh. This condition is a very difficult condition for this patient and also for the physicians to treat. Patient cannot have surgery at this time because of so much infection and inflammation, which is very dangerous and risky because considering the adhesion of the mesh to the bowel loops it may cause several lacerations in the small bowel loops and many segments of the small bowel may have to be resected and reanastomosed and is more chance of fistula formation. We think that the best treatment for this patient at this time is to treat the patient for a long time, maybe 4 to 6 weeks, with IV antibiotics and then see how the patient responds, and eventually she may actually respond with antibiotic, and there would be no need for further surgical intervention, but anyway, further recommendation and plan will be suggested upon the course of the treatment of the patient in the hospital. I think the patient should not be discharged home very soon, at least should be under IV antibiotics for 2 weeks so that we can observe her daily and see the course of the treatment, how it works for this patient, and then further decision will be made later on. I have discussed the situation with Dr. Reyes, and he agrees with this plan as well. If any question, please call us. We will be glad to discuss this matter with Infectious Disease colleagues and with other primary care physicians. Dictated By: Chet Chavez MD /hair/rosemarie /Document#: [id number] CL[place]
[2017-01-06 20:18] VITALS: BP 132/66; RESP 18
--- NOTE | 2017-01-06 21:24 | PN ---
DATE: 01/06/2017 SUBJECTIVE DATA: Patient is alert, lying comfortably in bed. Denies pain. No fevers. LABORATORY AND DIAGNOSTIC DATA: No labs. MICROBIOLOGY: Abdominal wound growing E coli and coag-negative staph species, both susceptible to ciprofloxacin. ANTIMICROBIALS: Patient is on: 1. Ampicillin. 2. Bactrim. PHYSICAL EXAMINATION: GENERAL: This is obese, well-developed, elderly woman, who is awake, in no distress. HEENT: Head atraumatic, normocephalic. Sclerae anicteric. Buccal mucosa dry. NECK: Supple. CHEST: Rise symmetrical. Breath sounds diminished at the bases. HEART: S1, S2. ABDOMEN: Soft, bowel sounds present. Patient has mid abdominal wound, with some induration on palpation. EXTREMITIES: Without cyanosis. ASSESSMENT: 1. Abdominal wound, with abscess and possibly infected mesh. 2. Cholelithiasis, without evidence of cholecystitis. 3. History of ventral hernia repair in 2010. 4. Hypertension. PLAN: Patient remains stable, on appropriate antimicrobials. Pending Surgical evaluation. Ideally infected mesh has to be removed, will defer to surgery. Dictated By: Laci Henley NP /hair/akbar /Document#: [id number] CLOVER
[2017-01-07 02:25] VITALS: BP 122/68; RESP 19
[2017-01-07] MEDS: AMPICILLIN/SULB 3 GM/NS (PMX) 100 ML IVPB SCH (05:43)
[2017-01-07 05:52] LABS: BASOPHILS % 0.5 % (0.0-2.0); EOSINOPHILS # 0.2 10^3/ul (0.0-0.5); EOSINOPHILS % 2.4 % (0.0-7.0); HEMATOCRIT 42.2 % (37.0-47.0); HEMOGLOBIN 14.1 g/dl (12.0-16.0); LYMPHOCYTES # 2.9 10^3/ul (0.8-2.9); MEAN CORPUSCULAR HEMOGLOBIN 31.2 pg (29.0-33.0); MEAN CORPUSCULAR HGB CONC 33.4 g/dl (32.0-37.0); MEAN CORPUSCULAR VOLUME 93.4 fl (82.0-101.0); MEAN PLATELET VOLUME 9.5 fl (7.4-10.4); MONOCYTE # 0.5 10^3/ul (0.3-0.9); PLATELET COUNT 241 10^3/UL (140-415); RED BLOOD COUNT 4.52 10^6/ul (4.20-5.40); RED CELL DISTRIBUTION WIDTH 13.8 % (11.5-14.5); WHITE BLOOD COUNT 7.4 10^3/ul (4.8-10.8)
[2017-01-07 06:30] LABS: CALCIUM 9.1 mg/dl (8.4-10.2); CREATININE 0.63 mg/dl (0.44-1.00); POTASSIUM 4.6 mmol/L (3.5-5.1)
[2017-01-07 07:36] VITALS: BP 125/70; RESP 18
[2017-01-07] MEDS: AMLODIPINE 10 MG TAB PO SCH (09:34)
[2017-01-07] MEDS: TRIMETHOPRIM/SULFAMETHOX (DS) TAB PO SCH (09:34)
[2017-01-07] MEDS ORDERED: IOHEXOL 14.3 MG(I)/ML (ADULT) BTL PO SCH (11:30)
[2017-01-07] MEDS ORDERED: LEVOFLOXACIN 750 MG TABLET PO ONE (12:30)
[2017-01-07] MEDS ORDERED: DIPHENHYDRAMINE 50 MG CAP PO PRN (13:00)
--- NOTE | 2017-01-07 13:19 | PN ---
DATE: 01/07/2017 SUBJECTIVE DATA: No acute changes overnight. The patient is alert, feels the same, still has abdominal discomfort. No nausea, vomiting, or diarrhea. No fevers. OBJECTIVE DATA: VITAL SIGNS: Temperature 98.2, pulse 85, respirations 18, blood pressure 125/70, saturation 96 on room air. LABORATORY AND DIAGNOSTIC DATA: WBC 7.4, no shift, no bands. BUN 13, creatinine 0.63. MICROBIOLOGY: Wound culture grew E coli, and coag-negative staph species, post organism susceptible to Levaquin and Cipro. ANTIMICROBIALS: The patient is on Bactrim and Unasyn. PHYSICAL EXAMINATION: GENERAL: This is obese, well developed, elderly woman, who is awake, in no distress. HEENT: Head atraumatic, normocephalic. Sclerae anicteric. Buccal mucosa dry. NECK: Supple. LUNGS: Chest rise symmetrical. Breath sounds clear. Diminished at bases. HEART: S1, S2. ABDOMEN: Soft, bowel sounds present. Patient has midabdominal wound with some drainage. EXTREMITIES: Without cyanosis. ASSESSMENT: 1. Abdominal wound with self-draining abscess and concern of infected mesh. Surgery on case. No plan for surgical intervention per ash Chavez. 2. History of ventral hernia repair in 2010. 3. Obesity. 4. Hypertension. 5. Cholelithiasis, no evidence of cholecystitis. PLAN: The patient remains stable. Again, she is being seen by surgical team. There is no plan for surgical intervention. Recommendation is to send her home on long-term antibiotics, which could be oral Levaquin, as both organisms susceptible to it. Discussed with Dr. Santamaria, who is covering Dr. Lucio, Dr. Jones and Dr. Chavez. Dictated By: Laci Henley NP /hair/shellie /Document#: [id number] CLOVER
--- NOTE | 2017-01-07 14:28 | PN ---
DATE: 01/07/2017 SUBJECTIVE: The patient is worried about how long she has to be in the hospital which she will be under the treatment and what is going to be the ultimate treatment for her. Otherwise no other complaint. No nausea, no vomiting. No fever. OBJECTIVE: VITAL SIGNS: 98.2, 85, 18, 125/70, and oxygen saturation 96 percent room air. LABORATORY AND DIAGNOSTIC DATA: WBC 7400, with 51 percent neutrophils, and hemoglobin 14.1. Chemistry within normal limits. TREATMENT: The patient is Bactrim and ampicillin antibiotics per Infectious Disease recommendations. PHYSICAL EXAMINATION: GENERAL: Awake, alert, and oriented times 3. ABDOMEN: Soft, induration of the abdominal wall has decreased comparing to yesterday. There is another spot of induration which appears to be some infection underneath. This is above the first one which is open now. ASSESSMENT AND PLAN: A 61-year-old female, who has been suffering from abdominal pain, redness and tenderness and swelling around the umbilicus for about 5 weeks. Eventually she developed opening and spot surrounding in the umbilicus, and per patient foul smelling liquid came out and this was seen in the emergency room by physician. Cultures grew Escherichia coli and coagulase-negative staph. CT scan question of possible infected mesh. Also there is infection in the subcutaneous tissue. I am not sure if the mesh which was placed 5 or 6 years ago after such a long time has got infected. There is a good possibility that the infection in the vicinity of mesh has been extending towards the mesh as well. One of the possibilities of that she may have developed stitch granuloma and in that case, eventually the sutures to be removed. Suggestion, I think the patient should receive antibiotics at this time for a long time, maybe 4- 6 weeks for infectious disease to see if that can eradicate the infectious agents and then observe the patient for a while. If recurrence of infection occurs, then that is the time that we probably have to go ahead and remove the mesh, but something which is of consideration is mesh is scarred adherent to a lot of loops underneath and removal of the mesh may cause damage to those small-bowel loops and cause several holes and we may be required to resect several loops of the bowel, and after that removing the mesh. We then have to leave it open or we may have to find some biologic mesh for momentary closure of the abdominal wall defect. So I explained to the patient today through a polisher balance screwhead that this is not an easy situation and the patient should be ready for long time treatment with antibiotics or surgical intervention. Even if surgical intervention goes on maybe more than once, may require 2 to 3 times intervention to eventually solve her problem. Even though so she may eventually develop more infection in future. The patient says that she understands and she is preparing herself mentally for these long time of treatment. Today, I am going to get a CT scan of the abdomen and pelvis oral, Gastrografin or some other sort of contrast to see if there is any fistula. Dictated By: Chet Chavez MD /hair/katarzyna /Document#: [id number]
[2017-01-07 14:29] VITALS: BP 117/54; RESP 19
--- NOTE | 2017-01-07 15:12 | PN ---
Date/Time of Note Date/Time of Note DATE: 01/07/17 TIME: 15:10 Assessment/Plan VTE Prophylaxis VTE Prophylaxis Intervention: SCD's Lines/Catheters IV Catheter Type (from Nrs): Saline Lock Urinary Cath still in place: No Assessment/Plan Assessment/Plan 61 yo F with h/o ventral hernia repair with mesh in 2010 presents with leaky abd wound. Imaging with subQ fluid around mesh and possible fistula narrow abx to levoflox, ID following gen surg following CT with PO contrast ordered to eval for fistula cont home meds CM cs for HH wound care possibly discharge home with HH in AM Subjective 24 Hr Interval Summary Free Text/Dictation Case discussed at length this AM with ID and general surgery. Used pt's friend as city weighmaster to provide update. Exam/Review of Systems Vital Signs Vitals Vital Signs Date Time Temp Pulse Resp B/P Pulse Ox O2 Delivery O2 Flow Rate FiO2 01/07/17 14:29 98.6 94 19 117/54 95 Intake and Output 01/06/17 01/06/17 01/07/17 14:59 22:59 06:59 Intake Total 1660 ml 700 ml Balance 1660 ml 700 ml Exam nad no mrg lungs clear abd soft wound wrapped no le edema CT results dw pt, gen surg, and ID Results Result Diagram: 01/07/17 0501/07/17 0523 Results 24 hrs Laboratory Tests Test 01/07/17 05:23 White Blood Count 7.4 Red Blood Count 4.52 Hemoglobin 14.1 Hematocrit 42.2 Mean Corpuscular Volume 93.4 Mean Corpuscular Hemoglobin 31.2 Mean Corpuscular Hemoglobin Concent 33.4 Red Cell Distribution Width 13.8 Platelet Count 241 Mean Platelet Volume 9.5 Neutrophils % 51.0 Lymphocytes % 39.0 Monocytes % 7.0 Eosinophils % 2.4 Basophils % 0.5 Nucleated Red Blood Cells % 0.0 Neutrophils # (Manual) 3.8 Lymphocytes # 2.9 Monocytes # 0.5 Eosinophils # 0.2 Basophils # 0.0 Nucleated Red Blood Cells # 0.0 Sodium Level 142 Potassium Level 4.6 Chloride Level 106 Carbon Dioxide Level 28 Anion Gap 13 Blood Urea Nitrogen 13 Creatinine 0.63 Glucose Level 100 Calcium Level 9.1 Medications Medications Current Medications Ondansetron HCl (Zofran Inj) 4 mg Q6H PRN IV NAUSEA AND/OR VOMITING; Start 01/03 at 10:30 Acetaminophen (Tylenol Tab) 650 mg Q6H PRN PO PAIN LEVEL 1-3 OR FEVER; Start at 10:30 Amlodipine Besylate (Norvasc) 10 mg DAILY PO Last administered on 01/07/17t 09: 34; Admin Dose 10 MG; Start 01/03/17 at 10:30 Levofloxacin (Levaquin) 750 mg DAILY@06 PO ; Start 01/08/17 at 13:00 Diphenhydramine HCl (Benadryl) 25 mg Q6H PRN PO ITCHING; Start 01/07/17 at 13:00 ATIF CONTRERAS MD Jan 07, 2017 15:12
--- NOTE | 2017-01-07 17:01 | RADRPT ---
PROCEDURE: CT abdomen and pelvis without IV contrast. CLINICAL INDICATION: Abdomen pain/enterocutaneous fistula/abdomen wall swelling. TECHNIQUE: CT scan of the abdomen and pelvis was performed on a [address] scanner. The patient is scanned without IV contrast. Coronal and sagittal reformatted images were obtained from the axia l source images. Images were reviewed on a high-resolution PACS workstation. Total radiation dose: Total CTDIvol: 17.7 mGy. Total DLP: 989 mGy-cm. One or more of the following dose reduction techniques were used: automated exposure control, adjustment of the mA and/or kV acco rding to patient size, or use of iterative reconstruction technique. COMPARISON: CT abdomen pelvis, 01/05/2017. FINDINGS: CT abdomen: The lung bases are clear. The heart is not enlarged without pericardial thickening or effusion. The liver is normal in size and density without focal hepatic mass or biliary dilatation. The splee n is normal in size. The stomach is partially collapsed but is grossly unremarkable. The pancreas as visualized is normal. There are stones in the contracted gallbladder and there is n o evidence of biliary dilatation. The adrenal glands are symmetrical and normal. There are nonobstructing small stones in the calices of the both kidneys. The kidneys are symmetrically normal bilaterally. No renal obstructive uropa thy or mass lesion is seen.. The aorta is normal in caliber. There is no retroperitoneal lymphadenopathy. The namrata hepatis reg ion is clear. There is diverticulosis of the left colon without evidence of diverticulitis. The bow el and mesentery, as visualized, are equally unremarkable. CT pelvis: There is a mesh in the mid anterior abdominal wall of the pelvis. There is an open wound in the subc utaneous fat of the anterior abdominal wall in the midline at the inferior margin of the mesh with f urther interval improvement. There is a fluid-filled tract at the right superior aspect of the mesh within the subcutaneous fat. The appendix is normal in the right lower quadrant. There is diverticulosis of the sigmoid colon wi thout evidence of diverticulitis. The small bowel loops situated within the pelvis are unremarkable. The pelvic organs are normal. The pelvic sidewalls and inguinal regions are clear. No mass, lymp hadenopathy is seen. No acute inflammation seen. The urinary bladder is normal. The surrounding osseous structures are unremarkable. No osteolytic or osteoblastic lesion is detect ed. IMPRESSION: 1. A mesh in the mid anterior abdominal wall of the pelvis. An open wound in the subcutaneous fat of the anterior abdominal wall in the midline at the inferior margin of the mesh with further interv al improvement. A fluid-filled tract at the right superior aspect of the mesh within the subcutaneou s fat. There is no evidence of enterocutaneous fistula. 2. Stones in the contracted gallbladder. 3. Nonobstructing small stones in the calices of the both kidneys, unchanged. 4. Diverticulosis of the sigmoid colon/left colon without evidence of diverticulitis RPTAT: GG .Alton Falk MD, MD Date Time Electronically viewed and signed by .Alton Falk MD, MD on 01/07/2017 17:00 .Y/
[2017-01-07 19:58] VITALS: BP 124/64; RESP 18
[2017-01-08 02:10] VITALS: BP 109/51; RESP 18
[2017-01-08 07:31] VITALS: BP 112/62; RESP 18
[2017-01-08] MEDS: AMLODIPINE 10 MG TAB PO SCH (08:29)
[2017-01-08] MEDS: CEFTRIAXONE 2 GM/50 ML (PMX) 50 ML IVPB SCH (13:00)
[2017-01-08] MEDS: LEVOFLOXACIN 750 MG TABLET PO SCH (13:31)
[2017-01-08 14:00] VITALS: BP 134/71; RESP 18
--- NOTE | 2017-01-08 14:11 | PN ---
Date/Time of Note Date/Time of Note DATE: 01/08/17 TIME: 14:10 Assessment/Plan VTE Prophylaxis VTE Prophylaxis Intervention: SCD's Lines/Catheters IV Catheter Type (from Nrs): Saline Lock Urinary Cath still in place: No Assessment/Plan Assessment/Plan 61 yo F with h/o ventral hernia repair with mesh in 2010 presents with leaky abd wound. Imaging with subQ fluid around mesh and possible fistula. Admission cultures now with additional microbes PICC placed per ID PICKER TENDER request, await further directive re abx selection gen surg following cont home meds will re cs CM once ID determines abx regimen Subjective 24 Hr Interval Summary Free Text/Dictation Tentative plan was for discharge today on PO levoflox however wound culture now with additional microbes Exam/Review of Systems Vital Signs Vitals Vital Signs Date Time Temp Pulse Resp B/P Pulse Ox O2 Delivery O2 Flow Rate FiO2 01/08/17 07:31 98.2 62 18 112/62 98 Intake and Output 01/07/17 01/07/17 01/08/17 15:00 23:00 07:00 Intake Total 1440 ml 300 ml Balance 1440 ml 300 ml Exam nad no mrg lungs clear no abd distension no rashes Results Result Diagram: 01/07/17 0501/07/17 0523 Medications Medications Current Medications Ondansetron HCl (Zofran Inj) 4 mg Q6H PRN IV NAUSEA AND/OR VOMITING; Start 01/03 at 10:30 Acetaminophen (Tylenol Tab) 650 mg Q6H PRN PO PAIN LEVEL 1-3 OR FEVER; Start at 10:30 Amlodipine Besylate (Norvasc) 10 mg DAILY PO Last administered on 01/08/17 08: 29; Admin Dose 10 MG; Start 01/03/17 at 10:30 Levofloxacin (Levaquin) 750 mg DAILY@06 PO Last administered on 01/08/17 13:31 ; Admin Dose 750 MG; Start 01/08/17 at 13:00 Diphenhydramine HCl 25 mg 25 mg Q6H PRN PO ITCHING; Start 01/07/17 at 13:00 Ceftriaxone Sodium (Rocephin) 50 ml @ 100 mls/hr Q24H IVPB ; Start 01/08/17 at 13:00 ATIF CONTRERAS MD Jan 08, 2017 14:11
[2017-01-08] MEDS ORDERED: LIDOCAINE 1% (MPF) 5 ML VIAL SC ONE (14:30)
--- NOTE | 2017-01-08 17:14 | PN ---
DATE: 01/08/2017 SUBJECTIVE DATA: No events overnight. No fevers. The patient is walking, looks comfortable. LABORATORY AND DIAGNOSTIC DATA: No labs this morning. Microbiology: Growing E coli, coag-negative staph, gram-negative rods and gamma hemolytic strep species. ANTIMICROBIALS: Patient was started on Rocephin this morning by our service. She is also on Levaquin. OBJECTIVE DATA: GENERAL: Well-developed, obese, elderly woman, who is in no distress. HEENT: Head atraumatic, normocephalic. Sclerae anicteric. Buccal mucosa dry. NECK: Supple. CHEST: Rise symmetrical. Breath sounds clear. HEART: S1, S2. ABDOMEN: Soft, bowel sounds present. Mid abdominal dressing intact. ASSESSMENT: 1. Abdominal wound with self-draining abscess and possibly infected surgical mesh status post ventral hernia repair in 2010. 2. Obesity. 3. Hypertension. 4. Cholelithiasis. PLAN: Patient remains clinically stable. Final sensitivities are pending. She is on Rocephin and Levaquin now. We will recommend to put PICC line and anticipate treating her with long- term IV antibiotics, as per surgical recommendations. Dictated By: Laci Henley NP /hair/dwight /Document#: [id number]
--- NOTE | 2017-01-08 19:38 | RADRPT ---
Vent Rate: 85 bpm RR Interval: 0 msec VT Interval: 130 msec QRS Duration: 80 msec QT Interval: 348 msec QTC Interval: 414 msec P-R-T [place]: 64 - 78 - 71 degrees Normal sinus rhythm Normal ECG Electronically Signed By: Dario Jaffe [id number]
[2017-01-08 19:54] VITALS: BP 151/68; RESP 18
[2017-01-09 01:57] VITALS: BP 129/60; RESP 18
[2017-01-09] MEDS: LEVOFLOXACIN 750 MG TABLET PO SCH (05:39)
[2017-01-09 07:33] VITALS: BP 138/70; RESP 18
[2017-01-09] MEDS: AMLODIPINE 10 MG TAB PO SCH (08:07)
[2017-01-09] MEDS: CEFTRIAXONE 2 GM/50 ML (PMX) 50 ML IVPB SCH (13:59)
[2017-01-09 14:27] VITALS: BP 108/53; RESP 18
--- NOTE | 2017-01-09 15:36 | PN ---
Date/Time of Note Date/Time of Note DATE: 01/09/17 TIME: 15:31 Assessment/Plan VTE Prophylaxis VTE Prophylaxis Intervention: SCD's Lines/Catheters IV Catheter Type (from Nrs): Saline Lock Urinary Cath still in place: No Assessment/Plan Assessment/Plan 61 yo F with h/o ventral hernia repair with mesh in 2010 presents with leaky abd wound. Imaging with subQ fluid around mesh, no evidence of fistula. pt refusing PICC. cont abx as per ID gen surg following cont home meds likely dc home in AM. CM already consulted for HH Subjective 24 Hr Interval Summary Free Text/Dictation After extensive discussion of risks/benefits of PICC line, pt still refusing. Exam/Review of Systems Vital Signs Vitals Vital Signs Date Time Temp Pulse Resp B/P Pulse Ox O2 Delivery O2 Flow Rate FiO2 01/09/17 14:27 98.5 89 18 108/53 96 Intake and Output 01/08/17 01/08/17 01/09/17 15:00 23:00 07:00 Intake Total 50 ml 1080 ml 800 ml Output Total 420 ml Balance 50 ml 1080 ml 380 ml Exam nad no mrg lungs clear abd soft abd wound significantly improved from my initial eval Thursday/Thursday. Area of erythema now down to 4 cm in diameter. Much less indurated Results Result Diagram: 01/07/1752201/07/17522 Medications Medications Current Medications Ondansetron HCl (Zofran Inj) 4 mg Q6H PRN IV NAUSEA AND/OR VOMITING; Start 01/03 at 10:30 Acetaminophen (Tylenol Tab) 650 mg Q6H PRN PO PAIN LEVEL 1-3 OR FEVER; Start at 10:30 Amlodipine Besylate (Norvasc) 10 mg DAILY PO Last administered on 01/09/17 08: 07; Admin Dose 10 MG; Start 01/03/17 at 10:30 Levofloxacin (Levaquin) 750 mg DAILY@06 PO Last administered on 01/09/17 05:39 ; Admin Dose 750 MG; Start 01/08/17 at 13:00 Diphenhydramine HCl 25 mg 25 mg Q6H PRN PO ITCHING; Start 01/07/17 at 13:00 Ceftriaxone Sodium (Rocephin) 50 ml @ 100 mls/hr Q24H IVPB Last administered on 01/09/17t 13:59; Admin Dose 100 MLS/HR; Start 01/08/17 at 13:00 ATIF CONTRERAS MD Jan 09, 2017 15:36
--- NOTE | 2017-01-09 17:23 | PN ---
DATE: 01/09/2017 SUBJECTIVE DATA: No acute changes. The patient is alert, feels good, wants to go home. No fevers. MICROBIOLOGY: Wound culture grew gamma hemolytic strep species, Enterobacter cloacae, coag-negative staph, Escherichia coli susceptible to ciprofloxacin. PHYSICAL EXAMINATION: GENERAL: This is an obese, well developed, elderly woman, who is alert, in no distress. HEENT: Head atraumatic, normocephalic. Sclerae anicteric. Buccal mucosa pink. NECK: Supple. CHEST: Rise symmetrical. Breath sounds clear. HEART: S1, S2. ABDOMEN: Soft, bowel sounds present. Mid abdominal dressing intact. EXTREMITIES: Without cyanosis, edema. ASSESSMENT: 1. Abdominal wound with self draining abscess and possibly infected surgical mesh. 2. Status post hernia repair in 2010. 3. Obesity. 4. Hypertension. PLAN: The patient is clinically stable. Surgery on case. I discussed the option of sending her home on IV antibiotics, which she declined and wants to try first oral antibiotics. All was discussed with the help of her daughter, who interpreted for me. If the patient changes her mind, we will send her on IV Rocephin and Levaquin for 4 weeks. Otherwise, if the patient refused PICC line, she will go home on oral Levaquin and follow with surgery. Dictated By: Laci Henley NP /hair/hank /Document#: [id number]
--- NOTE | 2017-01-09 19:14 | PN ---
Date/Time of Note Date/Time of Note DATE: 01/09/17 TIME: 19:04 Assessment/Plan VTE Prophylaxis VTE Prophylaxis Intervention: ambulation Lines/Catheters [facility] Saline Lock Urinary Cath still in place: No Assessment/Plan Assessment/Plan 61-year-old female presented to emergency room because of swelling redness pain and tenderness around her umbilicus for 3-4 weeks and drainage of the wound for about 24 hours which according to the patient has been foul-smelling was seen in emergency room CT scan was suggested possible fluid collection around the mesh which was done in 2010 for the ventral hernia. And had leukocytosis on admission but no fever. Radiologist impression was possibility also mesh infection. Surgical team opinion was that continue antibiotic unless the cellulitis get better because if we assume that the patient has MRSA infection after going to remove the mesh and this is going to be a very very difficult operation for this patient and the danger of multiple loops of the small bowel damage resection complications of this operation cannot to be assumed properly before operation. After few days of antibiotic cellulitis is much better drainage is minimal and tenderness almost was gone 1 of the possibilities is that the source of this problem was stitch granulomas therefore surgical team namely Dr. Dallas and Dr. Parham concluded that maybe it is better that we proceed and explore the wounds in the operating room and remove the stitches at least 2 of them and continued wound care postop she may be on antibiotics for longer time and daily wound dressing in the hospital or at home by home health care and see how these procedures will help the patient to get rid of cellulitis and infection and drainage. If these are not going to help the patient properly and adequately then the patient would need exploration and removal of the mesh in future. This plan of care was explained to the patient and the patient's daughter and she translated for her mother and they accepted and they are willing to sign the consent and I am going to do the operation tomorrow Thursday Subjective 24 Hr Interval Summary Free Text/Dictation No complaint today, no nausea no vomiting no fever tolerating diet walking around the floor Exam/Review of Systems Vital Signs Vitals Vital Signs Date Time Temp Pulse Resp B/P Pulse Ox O2 Delivery O2 Flow Rate FiO2 01/09/17 14:27 98.5 89 18 108/53 96 Intake and Output 01/08/17 01/08/17 01/09/17 15:00 23:00 07:00 Intake Total 50 ml 1080 ml 800 ml Output Total 420 ml Balance 50 ml 1080 ml 380 ml Exam Awake alert oriented 3 vital signs stable no fever. Dressing was changed by myself there is minimal drainage. Induration of the abdominal wall around the wound is much less. No fever today, no blood test was done today. Secondary area of induration and cellulitis above the open wound which is assumed to be due to a granuloma from the stitch has not opened up by itself yet Results Result Diagram: 01/07/17 0523 01/07/17 0523 Medications Medications Current Medications Ondansetron HCl (Zofran Inj) 4 mg Q6H PRN IV NAUSEA AND/OR VOMITING; Start 01/03 at 10:30 Acetaminophen (Tylenol Tab) 650 mg Q6H PRN PO PAIN LEVEL 1-3 OR FEVER; Start at 10:30 Amlodipine Besylate (Norvasc) 10 mg DAILY PO Last administered on 01/09/17 08: 07; Admin Dose 10 MG; Start 01/03/17 at 10:30 Levofloxacin (Levaquin) 750 mg DAILY@06 PO Last administered on 01/09/17 05:39 ; Admin Dose 750 MG; Start 01/08/17 at 13:00 Diphenhydramine HCl 25 mg 25 mg Q6H PRN PO ITCHING; Start 01/07/17 at 13:00 Ceftriaxone Sodium (Rocephin) 50 ml @ 100 mls/hr Q24H IVPB Last administered on 01/09/17 13:59; Admin Dose 100 MLS/HR; Start 01/08/17 at 13:00 EMMA PARHAM MD Jan 09, 2017 19:14
[2017-01-09 20:03] LABS: INR 1.01; PROTIME 13.3 Sec (12.2-14.2)
[2017-01-09 20:04] LABS: PARTIAL THROMBOPLASTIN TIME 32.2 Sec (25.0-35.0)
[2017-01-09 21:28] VITALS: BP 130/75; RESP 18
[2017-01-10] VITALS (21 sets, daily range): BP systolic 95–138; BP diastolic 53–73; PULSE 74–98; RESP 7–18
[2017-01-10] MEDS: LEVOFLOXACIN 750 MG TABLET PO SCH (05:36)
[2017-01-10 06:27] LABS: BASOPHILS % 0.3 % (0.0-2.0); EOSINOPHILS # 0.1 10^3/ul (0.0-0.5); EOSINOPHILS % 1.5 % (0.0-7.0); HEMATOCRIT 43.6 % (37.0-47.0); HEMOGLOBIN 14.4 g/dl (12.0-16.0); LYMPHOCYTES # 3.3 10^3/ul (0.8-2.9); LYMPHOCYTES % 38.8 % (15.0-51.0); MEAN CORPUSCULAR HEMOGLOBIN 30.8 pg (29.0-33.0); MEAN CORPUSCULAR VOLUME 93.2 fl (82.0-101.0); MEAN PLATELET VOLUME 9.7 fl (7.4-10.4); MONOCYTE # 0.6 10^3/ul (0.3-0.9); MONOCYTES % 6.4 % (0.0-11.0); NEUTROPHILS % 52.8 % (39.0-77.0); PLATELET COUNT 253 10^3/UL (140-415); RED BLOOD COUNT 4.68 10^6/ul (4.20-5.40); WHITE BLOOD COUNT 8.6 10^3/ul (4.8-10.8)
[2017-01-10 07:01] LABS: CALCIUM 9.7 mg/dl (8.4-10.2); CREATININE 0.74 mg/dl (0.44-1.00); POTASSIUM 4.3 mmol/L (3.5-5.1)
[2017-01-10] MEDS ORDERED: HYDROmorphONE (0.2 MG/ML) 10ML SYG IV PRN ×2 (08:30)
[2017-01-10] MEDS ORDERED: OXYCODONE/ACETAMINOPHEN (5/325) TAB PO PRN ×2 (08:30)
[2017-01-10] MEDS ORDERED: ONDANSETRON 4 MG INJ IV PRN (08:30)
[2017-01-10] MEDS ORDERED: FENTAnyl 50 MCG/ML VIAL IV PRN (08:30)
[2017-01-10] MEDS ORDERED: DIPHENHYDRAMINE 50 MG INJ IV PRN (08:30)
[2017-01-10] MEDS ORDERED: LABETALOL HCL 20MG INJ IV PRN (08:30)
[2017-01-10] MEDS ORDERED: PROCHLORPERAZINE 10 MG INJ IV PRN (08:30)
[2017-01-10] MEDS ORDERED: MEPERIDINE 25 MG INJ IV PRN (08:30)
[2017-01-10] MEDS ORDERED: EPHEDrine SULFATE 50 MG/5 ML SYG IV PRN (08:30)
[2017-01-10] MEDS ORDERED: hydrALAzine 20 MG INJ IV PRN (08:30)
[2017-01-10] MEDS: AMLODIPINE 10 MG TAB PO SCH (08:55)
[2017-01-10] MEDS ORDERED: LIDOCAINE 2% (SDV) 5 ML INJ ONE (09:56)
[2017-01-10] MEDS ORDERED: SUCCINYLCHOLINE CHLORIDE 100 MG/5 ML SYG IV ONE (09:56)
[2017-01-10] MEDS ORDERED: MIDAZOLAM 1 MG/ML 2 ML INJ ONE (09:56)
[2017-01-10] MEDS ORDERED: FENTAnyl 50 MCG/ML VIAL ONE ×2 (09:56→10:31)
[2017-01-10] MEDS ORDERED: PROPOFOL 20 ML ONE (09:56)
[2017-01-10] MEDS ORDERED: SILVER SULFADIAZINE 1% 50 GM CR TOP ONE (10:17)
[2017-01-10] MEDS ORDERED: METOCLOPRAMIDE 10 MG INJ ONE (10:21)
[2017-01-10] MEDS ORDERED: ROCURONIUM 50 MG INJ ONE (10:21)
[2017-01-10] MEDS ORDERED: ONDANSETRON 4 MG INJ ONE (10:21)
[2017-01-10] MEDS ORDERED: SILVER SULFADIAZINE 1% 50 GM CR TOP SCH (10:30)
[2017-01-10] MEDS ORDERED: SILVER SULFADIAZINE 1% 25 GM CR TOP SCH (10:30)
[2017-01-10] MEDS ORDERED: KETOROLAC 30 MG INJ ONE (10:55)
[2017-01-10] MEDS ORDERED: GLYCOPYRROLATE 0.4 MG INJ ONE (10:56)
[2017-01-10] MEDS ORDERED: NEOSTIGMINE 3 MG/3 ML SYRINGE ONE (10:56)
[2017-01-10] MEDS: CEFTRIAXONE 2 GM/50 ML (PMX) 50 ML IVPB SCH (13:08)
--- NOTE | 2017-01-10 13:37 | PN ---
Date/Time of Note Date/Time of Note DATE: 01/10/17 TIME: 13:36 Assessment/Plan VTE Prophylaxis VTE Prophylaxis Intervention: SCD's Lines/Catheters IV Catheter Type (from Nrs): Peripheral IV Urinary Cath still in place: No Assessment/Plan Assessment/Plan 61 yo F with h/o ventral hernia repair with mesh in 2010 presents with leaky abd wound. Imaging with subQ fluid around mesh, no evidence of fistula. sp operative debridement 9.9. pt refusing PICC. cont abx as per ID gen surg following cont home meds likely dc home in AM. CM already consulted for HH Subjective 24 Hr Interval Summary Free Text/Dictation Operative debridement today, report pending Exam/Review of Systems Vital Signs Vitals Vital Signs Date Time Temp Pulse Resp B/P Pulse Ox O2 Delivery O2 Flow Rate FiO2 01/10/17 12:58 98.3 102 18 116/61 96 01/10/17 12:10 Nasal Cannula 2.0 Intake and Output 01/09/17 01/09/17 01/10/17 15:00 23:00 07:00 Intake Total 50 ml 1480 ml Balance 50 ml 1480 ml Exam nad resp nonlabored no edema no rashes resting Results Result Diagram: 01/10/17 0520 01/10/17 0520 Results 24 hrs Laboratory Tests Test 01/09/17 19:15 01/10/17 05:20 Prothrombin Time 13.3 Prothrombin Time Ratio 1.0 INR International Normalized Ratio 1.01 Activated Partial Thromboplast Time 32.2 White Blood Count 8.6 Red Blood Count 4.68 Hemoglobin 14.4 Hematocrit 43.6 Mean Corpuscular Volume 93.2 Mean Corpuscular Hemoglobin 30.8 Mean Corpuscular Hemoglobin Concent 33.0 Red Cell Distribution Width 14.0 Platelet Count 253 Mean Platelet Volume 9.7 Neutrophils % 52.8 Lymphocytes % 38.8 Monocytes % 6.4 Eosinophils % 1.5 Basophils % 0.3 Nucleated Red Blood Cells % 0.0 Neutrophils # (Manual) 4.5 Lymphocytes # 3.3 H Monocytes # 0.6 Eosinophils # 0.1 Basophils # 0.0 Nucleated Red Blood Cells # 0.0 Sodium Level 142 Potassium Level 4.3 Chloride Level 104 Carbon Dioxide Level 28 Anion Gap 14 Blood Urea Nitrogen 16 Creatinine 0.74 Glucose Level 94 Calcium Level 9.7 Medications Medications Current Medications Ondansetron HCl (Zofran Inj) 4 mg Q6H PRN IV NAUSEA AND/OR VOMITING; Start 01/03 at 10:30 Acetaminophen (Tylenol Tab) 650 mg Q6H PRN PO PAIN LEVEL 1-3 OR FEVER; Start at 10:30 Amlodipine Besylate (Norvasc) 10 mg DAILY PO Last administered on 01/09/17 08: 07; Admin Dose 10 MG; Start 01/03/17 at 10:30 Levofloxacin (Levaquin) 750 mg DAILY@06 PO Last administered on 01/10/17 05:36 ; Admin Dose 750 MG; Start 01/08/17 at 13:00 Diphenhydramine HCl 25 mg 25 mg Q6H PRN PO ITCHING; Start 01/07/17 at 13:00 Ceftriaxone Sodium (Rocephin) 50 ml @ 100 mls/hr Q24H IVPB Last administered on 01/10/17 13:08; Admin Dose 100 MLS/HR; Start 01/08/17 at 13:00 ATIF CONTRERAS MD Jan 10, 2017 13:37
--- NOTE | 2017-01-10 13:59 | OPR ---
DATE OF OPERATION: 01/10/2017 SURGEON: Chet Chavez MD. RADIOLOGY PHYSICIAN ASSISTANT: None. ANESTHESIOLOGIST: Daniela Manuel MD PREOPERATIVE DIAGNOSES: 1. Abdominal wound infection. Cellulitis and abscess in 2 spots, I call it distal and proximal. Distal one with spontaneous drainage of the subcutaneous abscess. 2. Proximal abdominal wall inflammation due to possible suture granuloma. POSTOPERATIVE DIAGNOSES: 1. Abdominal wound infection. Cellulitis and abscess in 2 spots, I call it distal and proximal. Distal one with spontaneous drainage of the subcutaneous abscess. 2. Proximal abdominal wall inflammation due to possible suture granuloma. 3. Possible infected mesh. OPERATION PERFORMED: 1. Incision and debridement of distal open wound. The original wound opening was 1 x 1, cm. The final wound opening that is 7 cm x 2 cm x 2 cm. 2. Incision and debridement of the proximal abdominal wall wound. Preoperative measurement was no opening of the wound. Postop 5 cm longitudinally 3 cm transverse incision, and the 3 cm deep down to the mesh. ESTIMATED BLOOD LOSS: 5 mL. SPECIMEN: Yes. 1. From proximal wound culture, plus debrided tissues. 2. From the distal wound culture from debrided tissues. INDICATION: This is a 61-year-old female who presented to the [facility] Emergency Room because of presence of swelling and redness of the abdominal wall and drainage of foul- smelling fluid from that. Duration has been going on for months. So, the patient was seen in the Emergency room. There was leukocytosis. A CT scan revealed presence of open wound distally and going down to what appeared to be a previously placed abdominal wall mesh, which was placed in 2010. So the patient with the impression of cellulitis and abdominal wall abscess was admitted, and later on it became more obvious that the pathology has something to do with the abdominal wall mesh which was placed in 2010. After removing and reducing the contents of the incarcerated hernia, this was a [employer] mesh to layers was placed. Apparently patient did not have any problem for several years, until about a month ago when she gradually started developing redness and swelling and tenderness and pain in the anterior abdominal wall. In any case, the antibiotic was started for the patient, and gradually the cellulitis got improved much and the induration was better. But to make a final diagnosis, the suspicion was that this was originally in a stitch granuloma. So with the aim of proceeding and opening the wounds and finding the sutures and removing the suture material, hoping that is going to help and cure the process. Discussed with the patient, and the patient agreed and the surgical team including Dr. Chavez and Dr. Reyes made this plan, and eventually patient was taken to the OR today. OPERATIVE PROCEDURE: The patient was brought to the operating room, placed on operating table in supine position. Anesthesia was induced by the anesthesiologist. A time-out was called. Patient was identified, site of operation and procedures were discussed among the team. First, the proximal wound and distal wound were almost 7 cm apart. The decision was made to proceed with proximal wound. A longitudinal incision was made over the redness and bulging in the area of the proximal wound and carried down to subcutaneous tissue, there was very inflamed tissue and in the core of it and in the center of it, there was a core of abnormal granulation tissue. This was traced to eventually reach down to the anterior aspect of the mesh, and appeared that even going further deepened towards the posterior aspect of the anterior of the mesh into the peritoneal cavity, so I stopped at this spot because I was not ready and the patient was not prepared for having exploration of the abdominal cavity. Considering that the small-bowel loops were down to the posterior aspect of the mesh and we were not planning to remove the mesh. The wound was thoroughly irrigated at this time with hydrogen peroxide and Silvadene cream was applied inside the wound and the sponges were placed. Attention was paid towards the second wound which was 7 cm away from the proximal wound, and there was already an opening the wound. A probes were placed inside and it showed that it is going more towards the left lateral and it is tunneling under that. So an incision was made over the tunneling area and extent of the wound appears to be 7 cm transversely. Debridement was performed and the roof of the cavity was removed about 2 cm wide, and at this time we had a 7 cm x 2 cm x 2 cm. There are abnormal granulation tissue was going down over the mesh and I could see and I could feel the mesh. I could not see any suture material in this area either. So the wound was thoroughly irrigated with hydrogen peroxide and packed Silvadene cream and sponges. So the plan is to have the patient's wound be changed with dressing every day with Dakin solution on the floor and at home and see if the wound is going to close by primary intention, and if that is solved the problem then the patient is saved one big operation, namely removal of the mesh. Otherwise, most probably then the patient will need to have another operation in future, planning to remove the mesh and replacing it with biologic mesh. After packing the wounds with sponges and silver sulfadiazine, then a dry dressing was applied and taped to the abdominal wall. The procedure was terminated. SPECIMENS: The 2 specimens were sent for pathology evaluation. Dictated By: Chet Chavez MD /hair/zackary /Document#: [id number]
--- NOTE | 2017-01-10 15:32 | CONS ---
Date/Time of Note Date/Time of Note DATE: 01/10/17 TIME: 15:30 Assessment/Plan Assessment/Plan Chief Complaint/Hosp Course SUBJECTIVE DATA: No acute changes. Awake, looks comfortable, afebrile MICROBIOLOGY: Wound culture grew gamma hemolytic strep species, Enterobacter cloacae, coag-negative staph, Escherichia coli susceptible to ciprofloxacin. Abx: Levaquin, Rocephin PHYSICAL EXAMINATION: GENERAL: This is an obese, well developed, elderly woman, who is alert, in no distress. HEENT: Head atraumatic, normocephalic. Sclerae anicteric. Buccal mucosa pink. NECK: Supple. CHEST: Rise symmetrical. Breath sounds clear. HEART: S1, S2. ABDOMEN: Soft, bowel sounds present. Mid abdominal dressing intact. EXTREMITIES: Without cyanosis, edema. ASSESSMENT: 1. Abdominal wound with abscess and possibly infected surgical mesh===> s/p i&d. 2. Status post hernia repair in 2010. 3. Obesity. 4. Hypertension. PLAN: The patient remains stable. Continue abx, local wound care per surgical rec-s. DW staff Problems: Consultation Date/Type/Reason Admit Date/Time Jan 03, 2017 at 04:02 Initial Consult Date Type of Consultation: ID Exam/Review of Systems Vital Signs Vitals Vital Signs Date Time Temp Pulse Resp B/P Pulse Ox O2 Delivery O2 Flow Rate FiO2 01/10/17 14:27 98.0 94 18 105/53 96 01/10/17 12:10 Nasal Cannula 2.0 Intake and Output 01/09/17 01/09/17 01/10/17 15:00 23:00 07:00 Intake Total 50 ml 1480 ml Balance 50 ml 1480 ml Results Result Diagram: 01/10/17 0520 01/10/17 0520 Results 24 hrs Laboratory Tests Test 01/09/17 19:15 01/10/17 05:20 Prothrombin Time 13.3 Prothrombin Time Ratio 1.0 INR International Normalized Ratio 1.01 Activated Partial Thromboplast Time 32.2 White Blood Count 8.6 Red Blood Count 4.68 Hemoglobin 14.4 Hematocrit 43.6 Mean Corpuscular Volume 93.2 Mean Corpuscular Hemoglobin 30.8 Mean Corpuscular Hemoglobin Concent 33.0 Red Cell Distribution Width 14.0 Platelet Count 253 Mean Platelet Volume 9.7 Neutrophils % 52.8 Lymphocytes % 38.8 Monocytes % 6.4 Eosinophils % 1.5 Basophils % 0.3 Nucleated Red Blood Cells % 0.0 Neutrophils # (Manual) 4.5 Lymphocytes # 3.3 H Monocytes # 0.6 Eosinophils # 0.1 Basophils # 0.0 Nucleated Red Blood Cells # 0.0 Sodium Level 142 Potassium Level 4.3 Chloride Level 104 Carbon Dioxide Level 28 Anion Gap 14 Blood Urea Nitrogen 16 Creatinine 0.74 Glucose Level 94 Calcium Level 9.7 Medications Medications Current Medications Ondansetron HCl (Zofran Inj) 4 mg Q6H PRN IV NAUSEA AND/OR VOMITING; Start 01/03 at 10:30 Acetaminophen (Tylenol Tab) 650 mg Q6H PRN PO PAIN LEVEL 1-3 OR FEVER; Start at 10:30 Amlodipine Besylate (Norvasc) 10 mg DAILY PO Last administered on 01/09/17 08: 07; Admin Dose 10 MG; Start 01/03/17 at 10:30 Levofloxacin (Levaquin) 750 mg DAILY@06 PO Last administered on 01/10/17 05:36 ; Admin Dose 750 MG; Start 01/08/17 at 13:00 Diphenhydramine HCl 25 mg 25 mg Q6H PRN PO ITCHING; Start 01/07/17 at 13:00 Ceftriaxone Sodium (Rocephin) 50 ml @ 100 mls/hr Q24H IVPB Last administered on 01/10/17 13:08; Admin Dose 100 MLS/HR; Start 01/08/17 at 13:00 DULCE MARIA PALACIO NP Jan 10, 2017 15:32
[2017-01-11 01:27] VITALS: BP 114/56; RESP 18
[2017-01-11] MEDS: LEVOFLOXACIN 750 MG TABLET PO SCH (05:30)
[2017-01-11 07:42] VITALS: BP 119/61; RESP 18
[2017-01-11] MEDS: AMLODIPINE 10 MG TAB PO SCH (09:51)
[2017-01-11] MEDS: CEFTRIAXONE 2 GM/50 ML (PMX) 50 ML IVPB SCH (13:14)
[2017-01-11 14:11] VITALS: BP 114/52; RESP 18
--- NOTE | 2017-01-11 14:45 | PN ---
DATE: 01/11/2017 SUBJECTIVE DATA: Has no present complaints. No abdominal pain. No nausea. No vomiting. OBJECTIVE DATA: Awake, alert, oriented x3. Out of bed and walking around. Temperature between 98.2 and 99.1. Heart rate 79 and 85, respirations 18, blood pressure 119/61, saturation 97 percent on room air. LABORATORY AND DIAGNOSTIC DATA: No chemistry or lab done today. ASSESSMENT AND PLAN: The dressing was changed. The wounds were debrided yesterday and are open now. Irrigated with normal saline solution. From now on, dressing to be changed with 140- percent Dakin solution, wet-to-dry, b.i.d. We will watch her until tomorrow. If she is okay by tomorrow, then arrangements should be made by the home healthcare nurse system to go home, with change of dressing for this patient at least once a day. Dictated By: Chet Chavez MD /hair/magy /Document#: [id number]
--- NOTE | 2017-01-11 15:53 | PN ---
Date/Time of Note Date/Time of Note DATE: 01/11/17 TIME: 15:50 Assessment/Plan VTE Prophylaxis VTE Prophylaxis Intervention: SCD's Lines/Catheters IV Catheter Type (from Nrs): Saline Lock Urinary Cath still in place: No Assessment/Plan Assessment/Plan 61 yo F with h/o ventral hernia repair with mesh in 2010 presents with leaky abd wound. Imaging with subQ fluid around mesh, no evidence of fistula. sp operative debridement 9.9. pt refusing PICC. cont abx as per ID gen surg following-->requesting one more night of monitoring cont home meds likely dc home in AM. CM already consulted for HH Subjective 24 Hr Interval Summary Free Text/Dictation feels well, no questions Exam/Review of Systems Vital Signs Vitals Vital Signs Date Time Temp Pulse Resp B/P Pulse Ox O2 Delivery O2 Flow Rate FiO2 01/11/17 14:11 98.3 93 18 114/52 94 01/10/17 14:00 Nasal Cannula 10.0 Intake and Output 01/10/17 01/10/17 01/11/17 15:00 23:00 07:00 Intake Total 750 ml 420 ml Output Total 15 ml Balance 735 ml 420 ml Exam nad no mrg lungs clear abd wrapped no edema Results Result Diagram: 01/10/17 0520 01/10/17 0520 Medications Medications Current Medications Ondansetron HCl (Zofran Inj) 4 mg Q6H PRN IV NAUSEA AND/OR VOMITING; Start 01/03 at 10:30 Acetaminophen (Tylenol Tab) 650 mg Q6H PRN PO PAIN LEVEL 1-3 OR FEVER; Start at 10:30 Amlodipine Besylate (Norvasc) 10 mg DAILY PO Last administered on 01/11/17 09: 51; Admin Dose 10 MG; Start 01/03/17 at 10:30 Levofloxacin (Levaquin) 750 mg DAILY@06 PO Last administered on 01/11/17 05:30 ; Admin Dose 750 MG; Start 01/08/17 at 13:00 Diphenhydramine HCl 25 mg 25 mg Q6H PRN PO ITCHING; Start 01/07/17 at 13:00 Ceftriaxone Sodium (Rocephin) 50 ml @ 100 mls/hr Q24H IVPB Last administered on 01/11/17 13:14; Admin Dose 100 MLS/HR; Start 01/08/17 at 13:00 Sodium Hypochlorite (Dakin'S (Dilute 1/40%)) 1 applic BID IRR ; Start 01/11/17 at 21:00 ATIF CONTRERAS MD Jan 11, 2017 15:53
--- NOTE | 2017-01-11 16:14 | CONS ---
Date/Time of Note Date/Time of Note DATE: 01/11/17 TIME: 16:06 Assessment/Plan Assessment/Plan Chief Complaint/Hosp Course SUBJECTIVE DATA: No acute changes. Complains of Abdominal Pain. MICROBIOLOGY: Wound culture grew gamma hemolytic strep species, Enterobacter cloacae, coag-negative staph, Escherichia coli susceptible to ciprofloxacin. Abx: Levaquin, Rocephin PHYSICAL EXAMINATION: GENERAL: This is an obese, well developed, elderly woman, who is alert, in no distress. HEENT: Head atraumatic, normocephalic. Sclerae anicteric. Buccal mucosa pink. NECK: Supple. CHEST: Rise symmetrical. Breath sounds clear. HEART: S1, S2. ABDOMEN: Right Upper Quadrant tenderness noted. Left Lower Quadrant tenderness noted. Soft, bowel sounds present. Mid abdominal dressing intact. EXTREMITIES: Without cyanosis, edema. ASSESSMENT: 1. Abdominal wound with abscess and possibly infected surgical mesh===> s/p i&d. 2. Status post hernia repair in 2010. 3. Obesity. 4. Hypertension. 5. Right Upper Quadrant Abdominal Pain. 6. Left Lower Quadrant Abdominal Pain. PLAN: The patient remains stable. Pain Management. Continue antibiotics. Local wound care per surgical recommendations. DW staff Problems: Consultation Date/Type/Reason Admit Date/Time Jan 03, 2017 at 04:02 Initial Consult Date Type of Consultation: ID Exam/Review of Systems Vital Signs Vitals Vital Signs Date Time Temp Pulse Resp B/P Pulse Ox O2 Delivery O2 Flow Rate FiO2 01/11/17 14:11 98.3 93 18 114/52 94 01/10/17 14:00 Nasal Cannula 10.0 Intake and Output 01/10/17 01/10/17 01/11/17 14:59 22:59 06:59 Intake Total 750 ml 420 ml Output Total 15 ml Balance 735 ml 420 ml Results Result Diagram: 01/10/1751901/10/17 05 Medications Medications Current Medications Ondansetron HCl (Zofran Inj) 4 mg Q6H PRN IV NAUSEA AND/OR VOMITING; Start 01/03 at 10:30 Acetaminophen (Tylenol Tab) 650 mg Q6H PRN PO PAIN LEVEL 1-3 OR FEVER; Start at 10:30 Amlodipine Besylate (Norvasc) 10 mg DAILY PO Last administered on 01/11/17t 09: 51; Admin Dose 10 MG; Start 01/03/17 at 10:30 Levofloxacin (Levaquin) 750 mg DAILY@06 PO Last administered on 01/11/17 05:30 ; Admin Dose 750 MG; Start 01/08/17 at 13:00 Diphenhydramine HCl 25 mg 25 mg Q6H PRN PO ITCHING; Start 01/07/17 at 13:00 Ceftriaxone Sodium (Rocephin) 50 ml @ 100 mls/hr Q24H IVPB Last administered on 01/11/17 13:14; Admin Dose 100 MLS/HR; Start 01/08/17 at 13:00 Sodium Hypochlorite (Dakin'S (Dilute 1/40%)) 1 applic BID IRR ; Start 01/11/17 at 21:00 JAQUELINE HSU NP Jan 11, 2017 16:14
[2017-01-11 19:30] VITALS: BP 134/73; RESP 20
[2017-01-11] MEDS: SODIUM HYPOCHLORITE 1/40% 1L IRRIG IRR SCH (20:56)
[2017-01-12 01:46] VITALS: BP 114/60; RESP 20
[2017-01-12] MEDS: LEVOFLOXACIN 750 MG TABLET PO SCH (05:21)
[2017-01-12 05:43] LABS: BASOPHILS % 0.4 % (0.0-2.0); EOSINOPHILS # 0.1 10^3/ul (0.0-0.5); EOSINOPHILS % 1.2 % (0.0-7.0); HEMATOCRIT 41.1 % (37.0-47.0); HEMOGLOBIN 13.3 g/dl (12.0-16.0); LYMPHOCYTES % 31.8 % (15.0-51.0); MEAN CORPUSCULAR HEMOGLOBIN 30.2 pg (29.0-33.0); MEAN CORPUSCULAR HGB CONC 32.4 g/dl (32.0-37.0); MEAN CORPUSCULAR VOLUME 93.2 fl (82.0-101.0); MEAN PLATELET VOLUME 9.6 fl (7.4-10.4); MONOCYTE # 0.5 10^3/ul (0.3-0.9); MONOCYTES % 5.6 % (0.0-11.0); NEUTROPHILS % 60.8 % (39.0-77.0); PLATELET COUNT 220 10^3/UL (140-415); RED BLOOD COUNT 4.41 10^6/ul (4.20-5.40); RED CELL DISTRIBUTION WIDTH 13.7 % (11.5-14.5); WHITE BLOOD COUNT 9.4 10^3/ul (4.8-10.8)
[2017-01-12 08:26] VITALS: BP 122/63; RESP 18
[2017-01-12] MEDS: AMLODIPINE 10 MG TAB PO SCH (08:54)
[2017-01-12] MEDS: SODIUM HYPOCHLORITE 1/40% 1L IRRIG IRR SCH (08:54)
--- NOTE | 2017-01-12 10:30 | PDOCDIS ---
Discharge Instructions CONDITION Patient Condition: Stable HOME CARE INSTRUCTIONS: Diet Instructions: Low Fat /Cholesterol ACTIVITY: Activity Restrictions: Slowly Increase Activity FOLLOW UP/APPOINTMENTS Follow-up Plan Please take your medications as prescribed, please follow-up with your primary doctor in the clinic next 1-2 weeks KAYLIE MARTELL Jan 12, 2017 10:30
[2017-01-12] MEDS ORDERED: AMLO-147 PO (10:32)
[2017-01-12] MEDS ORDERED: BEN50 PO (10:32)
[2017-01-12] MEDS ORDERED: ACET325T40 PO (10:32)
[2017-01-12] MEDS ORDERED: LEVO750T25 PO (10:32)
--- NOTE | 2017-01-12 11:35 | DS ---
DATE OF ADMISSION: 01/03/2017 DATE OF DISCHARGE: 01/12/2017 HOSPITAL COURSE: This is a 61-year-old female originally admitted on January 03, 2017 being discharged home pending clearance from surgery team on January 12, 2017. The patient came in initially with sepsis secondary to looks like abdominal wall cellulitis. She was placed on IV antibiotics and she was seen by multiple specialists during this hospital stay including General surgery team and Infectious Disease team. The patient was found with a leaky abdominal wound infection. She had a prior history of a ventral hernia repair with mesh placed in 2010. On imaging studies this admission, there were findings consistent with subcutaneous fluid around the mesh but no evidence of a fistula. She underwent an operative debridement on January 10 by the surgery team, after which she was continued on antibiotics. Over the course of her hospital stay, her white blood cell count trended down. Her wound culture was positive for E. coli, coagulase-negative Staph, enterobacter and gamma hemolytic Strep species and again her antibiotics were adjusted based on those sensitivities. She had no fevers at the time of discharge. Eventually she was able to ambulate and tolerate a p.o. diet. She did refuse a PICC line, so, upon speaking with an Infectious Disease team they recommended p.o. antibiotics for home use. The patient also had some adjustments made to her blood pressure meds as well. Her vitals are stable. Her labs were stable. No fevers. She is cleared by Surgery Team and her home health is set up. She will be discharged home today in improved condition. If she goes today, she will go home with the following medications: 1. Tylenol 650 q.6h p.r.n. 2. Amlodipine 10 mg daily. 3. Benadryl 25 mg q.6h p.r.n. 4. Levaquin 750 mg daily for 7 more days. She will need to follow up with primary care doctor in clinic in next 1-2 weeks. FINAL DIAGNOSES: 1. Sepsis secondary to abdominal wound infection cellulitis. 2. Leaky abdominal wound around her prior ventral hernia repair site with mesh status post operative debridement performed on January 10, this admission. 3. Hypertension. 4. Prior history of ventral hernia repair as mentioned above. Discharge time spent with patient, 40 minutes. Dictated By: Bertin Frederick MD /hair/daniel /Document#: [id number] MTDD
[2017-01-12] MEDS: CEFTRIAXONE 2 GM/50 ML (PMX) 50 ML IVPB SCH (12:09)
--- NOTE | 2017-01-12 14:51 | PN ---
Date/Time of Note Date/Time of Note DATE: 01/12/17 TIME: 14:42 Assessment/Plan VTE Prophylaxis VTE Prophylaxis Intervention: ambulation Lines/Catheters IV [facility]ter [facility]from [facility] Saline Lock Urinary Cath still in place: No Assessment/Plan Assessment/Plan 61-year-old female presented to emergency room complaining of abdominal wall pain swelling redness tenderness for about 4 weeks duration and for about 2 days drainage from the center of this wound. The impression of cellulitis and possible subcutaneous abscess patient was admitted CT scan revealed presence of mesh and some edema and fluid around it possible mesh infection should be mentioned that 6 years ago this patient underwent hernia repair with placement of the double layer [employer] mesh for closing the defect and since then patient has not been having any problem is about 6 years that was problem free and recently as was mentioned in past 24-5 weeks has had this problem. Patient is started on antibiotics. Culture sensitivity and has responded very well. Indicated the appeared that patient has developed suture granuloma and one of them probably as cause also more infection of the subcutaneous tissue 2 days ago I took her to the operating room opened the wounds there was definitely abnormal granulation tissue going deep to the level of the mesh from the superior and this wound was left open I could not find any suture material and the second 1 was opened transversely infected the skin on top of it was removed and some debridement was performed and specimens were sent for pathology evaluation as well as cultures. Stain and cultures so far has been negative. 90s to continue to apply daily dressing with Dakin solution 1/40% as a wet-to- dry here or at home by home health care nurses and let the wound heal by the secondary intention. Infectious disease bath design sales consultant will return remind what kind of antibiotic and for how long the patient is going to receive. Patient was given instructions to call Dr. Dallas office surgeon who operated on her 6 years ago to be followed by Dr. Dallas in the office and further management will be done and instructed by Dr. Dallas. I explained to the patient and patient's daughter this debridement is going to help her get rid of old infections is a good thing that can happen to the patient otherwise she may require removal of the mesh she is going to be a very much bigger operation in future. The questions of the patient and her daughter was answered. Subjective 24 Hr Interval Summary Free Text/Dictation Postop day #2 operation incision and debridement of the abdominal wall wounds No complain no nausea no vomiting no fever as tolerated regular diet. Exam/Review of Systems Vital Signs Vitals Vital Signs Date Time Temp Pulse Resp B/P Pulse Ox O2 Delivery O2 Flow Rate FiO2 01/12/17 08:26 98.5 85 18 122/63 95 01/10/17 14:00 Nasal Cannula 10.0 Intake and Output 01/11/17 01/11/17 01/12/17 15:00 23:00 07:00 Intake Total 50 ml 1800 ml 300 ml Balance 50 ml 1800 ml 300 ml Exam Vital signs stable afebrile WBC today 9400 with normal differential. Abdominal wall wound has been treated with Dakin solution 1/40% as a wet-to-dry dressing. The wounds look clean and clear. Results Result Diagram: 01/12/17 0513 01/10/17 0520 Results 24 hrs Laboratory Tests Test 01/12/17 05:13 White Blood Count 9.4 Red Blood Count 4.41 Hemoglobin 13.3 Hematocrit 41.1 Mean Corpuscular Volume 93.2 Mean Corpuscular Hemoglobin 30.2 Mean Corpuscular Hemoglobin Concent 32.4 Red Cell Distribution Width 13.7 Platelet Count 220 Mean Platelet Volume 9.6 Neutrophils % 60.8 Lymphocytes % 31.8 Monocytes % 5.6 Eosinophils % 1.2 Basophils % 0.4 Nucleated Red Blood Cells % 0.0 Neutrophils # (Manual) 5.7 Lymphocytes # 3.0 H Monocytes # 0.5 Eosinophils # 0.1 Basophils # 0.0 Nucleated Red Blood Cells # 0.0 Medications Medications Current Medications Ondansetron HCl (Zofran Inj) 4 mg Q6H PRN IV NAUSEA AND/OR VOMITING; Start 01/03 at 10:30 Acetaminophen (Tylenol Tab) 650 mg Q6H PRN PO PAIN LEVEL 1-3 OR FEVER; Start at 10:30 Amlodipine Besylate (Norvasc) 10 mg DAILY PO Last administered on 01/12/17 08: 54; Admin Dose 10 MG; Start 01/03/17 at 10:30 Levofloxacin (Levaquin) 750 mg DAILY@06 PO Last administered on 01/12/17 05:21 ; Admin Dose 750 MG; Start 01/08/17 at 13:00 Diphenhydramine HCl 25 mg 25 mg Q6H PRN PO ITCHING; Start 01/07/17 at 13:00 Ceftriaxone Sodium (Rocephin) 50 ml @ 100 mls/hr Q24H IVPB Last administered on 01/12/17 12:09; Admin Dose 100 MLS/HR; Start 01/08/17 at 13:00 Sodium Hypochlorite (Dakin'S (Dilute 1/40%)) 1 applic BID IRR Last administered on 01/12/17 08:54; Admin Dose 1 APPLIC; Start 01/11/17 at 21:00 EMMA PARHAM MD Jan 12, 2017 14:51
[2017-01-12 19:42] VITALS: BP 122/67; RESP 20
--- NOTE | 2017-01-12 21:27 | PN ---
DATE: 01/12/2017 SUBJECTIVE DATA: No events overnight. No fevers. Patient is alert, feels better, looks comfortable. Wound culture from January 10 revealed no organisms. ANTIMICROBIALS: Patient is on Rocephin and Levaquin. PHYSICAL EXAMINATION: GENERAL: This is an obese, well developed, elderly woman, who is alert, in no distress. HEENT: Head atraumatic, normocephalic. Sclerae anicteric. Buccal mucosa pink. NECK: Supple. CHEST: Rise symmetrical. Breath sounds clear. HEART: S1, S2. ABDOMEN: Soft, bowel sounds present. Dressing intact. ASSESSMENT: 1. Abdominal wound with abscess status post incision and drainage, wound culture on admission grew Escherichia coli, Enterobacter cloacae, gamma hemolytic strep species and coag- negative Staphylococcus species, all susceptible to Cipro and Levaquin. 2. History of ventral hernia repair. 3. Obesity. 4. Hypertension. PLAN: Patient remains stable. She is being followed by Dr. Chavez in surgical consultation. There was a concern for infected mesh. Patient refused PICC line and would like to go home on oral antibiotics. Recommend to send her home on oral Levaquin once she is cleared by Surgery for 3-4 weeks. Consider to order probiotics or [id number] probiotics. Dictated By: Laci Henley NP /hair/sage /Document#: [id number]
--- NOTE | 2017-01-13 11:09 | PN ---
DATE: 01/08/2017 SUBJECTIVE DATA: No complaint. She states that she is much better than the date of admission. OBJECTIVE DATA: VITAL SIGNS: Stable. Temperature 98.3, heart rate 88, respirations 18, blood pressure 174/71, saturation 97 percent on room air. LABORATORY AND DIAGNOSTIC DATA: No labs today. Yesterday, WBC was 7400 with normal differential. MICROBIOLOGY: Today, a couple more bacteria have been added to the previous growth of the bacteria. Namely at this time now we have: 1. Escherichia coli, 3+. 2. Coagulase-negative Staphylococcus, 1+. 3. We have another gram-negative ricki, 1+ quantity. 4. Gamma-hemolytic Streptococcus species isolated from broth only. PHYSICAL EXAMINATION: GENERAL: The patient is alert, awake, oriented x3. No acute distress. No pain, feels better. ABDOMEN: Soft. The open wound has drained about, at most, 1 mL in the past 24 hours. Induration of subcutaneous tissue is much less. Cellulitis is much better. 7-8 cm, cephalad to the open wound on the right side of mid line there is another area of induration, which is getting better as well. Appears there is some minimal fluctuation underneath that. Today, they did a CT scan of the abdomen and pelvis with oral contrast; it did not show any evidence of fistula of her small bowel or large bowel through the wound. ASSESSMENT AND PLAN: A 61-year-old female who had a large ventral hernia operated by Dr. Reyes surgeon in 2010, and since that time, the patient has been doing fine with no complication, and no problem. Only about 4-5 weeks ago, she has started developing some redness and pain and tenderness and hardness of the abdominal wall around the umbilicus, and eventually, after about 3-4 weeks, it has opened up and some foul smell, fluid drained. The patient came to the emergency room, where they found the patient had cellulitis of the abdominal wall, and wound was open. Some drainage culture was taken, which revealed it grew [address] scans have shown that the mesh grossly is intact, but the fluid is around the mesh as well, so putting everything together, this could be a stitch granuloma, which got infected in the vicinity of the mesh and actually could be 2 stitch granulomas. As mentioned before, yesterday in my progress note, if we consider that this mesh has got infected, most probably the mesh has to be removed, and that is going to be a very difficult job for the patient and for the physician because there is a lot of adhesion, and there are several loops of small bowel further down behind the mesh, and if loops of small bowel gets damaged necessitating resection of several loops of the small bowel, and this is also an open surgery; therefore, the bowel is open, and there is contamination, and we cannot put any more mesh unless we find some kind of Biologic mesh, and put it over there, which sometimes is difficult to find it. Therefore, the best idea, I think, is to continue the patient on antibiotic for a longer time, hoping that the infection may go away and may not be extended to the bulk of the mesh, so that the patient may save 1 big operation on her abdominal wall. I discussed with Dr. Reyes, and he also agrees with this policy, and I have discussed with Dr. Jones, the hospitalist in charge of the patient, and altogether the plan is to send her home with either oral antibiotics for 3-4 weeks or with IV antibiotic after putting a PICC line, depending on the choice of the infectious disease colleagues. The patient will follow Dr. Reyes In his office later on. Dictated By: Chet Chavez MD /hair/pop /Document#: [id number] [place]
== END 2017-01-12 19:45 | disposition home health service (06) | DRG 854 ==
LOC: E/R 22:35 → MS2 01-03 04:02
PROVIDERS: ADMIT Internal Medicine; ATTEND Internal Medicine
PROC: 0W9F0ZZ Drainage of Abdominal Wall, Open Approach (ICD-10-PCS; 2017-01-10)
PROC: 0JB80ZZ Excision of Abdomen Subcutaneous Tissue and Fascia, Open Approach (ICD-10-PCS; principal; 2017-01-10 09:00)
DX: A41.51 Sepsis due to Escherichia coli [E. coli] (principal); L02.211 Cutaneous abscess of abdominal wall; I10 Essential (primary) hypertension; L03.311 Cellulitis of abdominal wall; A41.1 Sepsis due to other specified staphylococcus; A40.8 Other streptococcal sepsis; A41.59 Other Gram-negative sepsis; Z87.19 Personal history of other diseases of the digestive system; K80.20 Calculus of gallbladder without cholecystitis without obstruction; N20.0 Calculus of kidney; L92.8 Other granulomatous disorders of the skin and subcutaneous tissue
CPT/HCPCS: 36415; 74176; 74177; 80048; 80053; 80202; 81003; 82565; 83690; 83735; 84100; 84520; 85025; 85610; 85730; 87070; 87075; 87102; 88305; 93005; 96365; 96366; 96368; J0295; J0692; J1170; J1885; J1956; J2175; J2250; J2270; J2405; J2710; J2765; J3010; J3370; J7999; Q9967

== ENCOUNTER 2017-12-23 13:34 | Inpatient (IN) | END 2017-12-26 17:00 | disposition home or self-care (01) | DRG 908 ==